=== PATIENT | male | born 1980 | race Caucasian/White ===

== ENCOUNTER → 2016-12-26 | Outpatient (CLI) | payer OTHER ==
[~2016-12-26] MED LIST: ALLDSR/24 PO; FIBER TABLETS; STOOL SOFTNER; TRAZODONE; [UNRECOGNIZED DRUG - OTHER]
[2016-12-26 10:38] LABS: ALT/SGPT 18 U/L (12-78); BLOOD UREA NITROGEN 18 mg/dl (7-18); BUN/CREATININE RATIO 14.9 (10-20); CALCIUM 9.2 mg/dl (8.5-10.1); CARBON DIOXIDE 27 mmol/L (21-32); CHLORIDE 111 mmol/L (98-107); GLUCOSE 92 mg/dl (70-99); POTASSIUM 3.9 mmol/L (3.5-5.1); SODIUM 144 mmol/L (136-145)
[2016-12-26 10:41] LABS: ALB/GLOB RATIO 1.4 (0.9-2); ALKALINE PHOSPHATASE 73 U/L (45-117); AST/SGOT 6 U/L (15-37); CHOLESTEROL 143 mg/dl (0-200); CHOLESTEROL/HDL RATIO 2.9; HDL CHOLESTEROL 50 mg/dl; LDL CHOLESTEROL CALCULATED 80 mg/dl; TRIGLYCERIDES 65 mg/dl (0-150); VERY LOW DENSITY LIPOPROT CALC 13 mg/dl
== END | disposition home or self-care (01) ==
LOC: C.LAB 09:06
PROVIDERS: ATTEND Psychologist Clinical
DX: Z79.899 Other long term (current) drug therapy (principal)

== ENCOUNTER 2017-12-05 02:07 | Emergency (ER) | payer OTHER ==
[~2017-12-05] VITALS: Ht 180.3 cm; Wt 89.7 kg
[2017-12-05 02:08] VITALS: TEMP 37.3; Ht 180.3 cm; Wt 89.7 kg
[2017-12-05] MEDS ORDERED: ONDANSETRON INJ 2 MG/ML 2 ML VIAL IV STA (02:19)
[2017-12-05] MEDS ORDERED: SODIUM CHLORIDE 0.9% 1000ML 1,000 ML IV STA (02:19)
--- NOTE | 2017-12-05 02:27 | EMERGENCY ROOM VISIT NOTE ---
History Report prepared by Kadeem: Anahi Dean Under the Supervision of: Dr. Debi Cueto D.O. First contact with patient: 02:08 Chief Complaint: VOMITING Stated Complaint: VOMITING/ABDOMINAL PAIN Nursing Triage Summary: arrived via amb with bls. pt c/o n/v since 29 with abd pain. History of Present Illness The patient is a 37 year old male who presents to the Emergency Room with complaints of persistent vomiting that started 2 hours ago. The patient rates his pain a 4/10 in severity. He notes he was watching a show until 10pm last night and went to bed afterwards. He states he woke up a couple of hours later and had to vomit. The patient notes he vomited three times at home and once in the ED. The patient denies being around anyone who has recently been sick. He denies any health issues, including diabetes. He has a disability but is unsure what it is. He notes his PCP is Cecily House. The patient reports he has abdominal pain. He notes he had chicken noodle soup and two grilled cheese sandwiches for dinner. The patient denies any diarrhea or urine symptoms. He works at [employer]. Source of History: patient Onset: 2 hours ago Position: other (vomiting) Symptom Intensity: 4/10 Timing: other (persistent) Associated Symptoms: + abdominal pain, No diarrhea, No urinary symptoms Review of Systems See HPI for pertinent positives & negatives. A total of 10 systems reviewed and were otherwise negative. Past Medical & Surgical Patient states no past medical or surgical history. Family History No pertinent family history Social History Smoking Status: Never Smoker Alcohol Use: none Marital Status: single Occupation Status: unemployed Current/Historical Medications Scheduled Cetirizine Hcl (All Day Allergy), 1 TAB PO DAILY Docusate Sodium (Stool Softener), 100 MG PO DAILY Fiber Laxative (Fiber Laxative), 1 TAB PO DAILY Multiple Vitamins W/ Minerals (Centrum), 1 TAB PO DAILY Ranitidine (Zantac), 150 MG PO DAILY Risperidone (Risperidone), 2 MG PO DAILY Trazodone Hcl (Trazodone), 100 MG PO HS Miscellaneous Medications Multiple Vitamins W/ Minerals (Centrum Adults) Allergies Coded Allergies: No Known Allergies (Unverified , 12/05/17) Physical Exam Vital Signs Date Time Temp Pulse Resp B/P (MAP) Pulse Ox O2 Delivery O2 Flow Rate FiO2 12/05/17 06:00 93 12/05/17 05:49 83 18 108/73 97 Room Air 12/05/17 03:58 87 18 110/64 97 Room Air 12/05/17 03:06 81 18 113/72 98 Room Air 12/05/17 02:08 37.3 86 20 154/92 97 Room Air 12/05/17 02:08 89 Physical Exam General: Extraordinary pale and diaphoretic. HEENT: Head - normocephalic and atraumatic Pupils are equal, round, and reactive to light. Extraocular eye muscles are intact, and sclera are anicteric. Nose - moist nasal mucosa without discharge. Mouth - moist buccal mucosa. Oropharynx is nonerythematous and there is no tonsillar exudate or edema noted. Neck: Supple; no JVD, nuchal rigidity, cervical lymphadenopathy. Heart: Tachycardic. There is a normal S1 and S2 with no murmurs, clicks, or gallops appreciated. Lungs: Clear to auscultation bilaterally with no wheezes, rales, or rhonchi. Abdomen: Soft, completely nontender, nondistended, with good bowel sounds. There are no palpable pulsatile masses or hepatosplenomegaly. There is no guarding, rigidity, or rebound noted. Extremities: No evidence of cyanosis, clubbing, or edema. There are easily palpable peripheral pulses. Skin: warm and dry with good turgor and no rashes. Medical Decision & Procedures Laboratory Results 12/05/17 02:20 Red Blood Count 4.34, Mean Corpuscular Volume 89.4, Mean Corpuscular Hemoglobin 31.3, Mean Corpuscular Hemoglobin Concent 35.1, Mean Platelet Volume 9.3, Neutrophils (%) (Auto) 79.7, Lymphocytes (%) (Auto) 14.8, Monocytes (%) (Auto) 4.9, Eosinophils (%) (Auto) 0.5, Basophils (%) (Auto) 0.0, Neutrophils # (Auto) 8.31, Lymphocytes # (Auto) 1.54, Monocytes # (Auto) 0.51, Eosinophils # (Auto) 0.05, Basophils # (Auto) 0.00 12/05/17 02:20 Test 12/05/17 02:20 White Blood Count 10.42 K/uL (4.8-10.8) Red Blood Count 4.34 M/uL (4.7-6.1) Hemoglobin 13.6 g/dL (14.0-18.0) Hematocrit 38.8 % (42-52) Mean Corpuscular Volume 89.4 fL (80-100) Mean Corpuscular Hemoglobin 31.3 pg (25-34) Mean Corpuscular Hemoglobin Concent 35.1 g/dl (32-36) Platelet Count 212 K/uL (130-400) Mean Platelet Volume 9.3 fL (7.4-10.4) Neutrophils (%) (Auto) 79.7 % Lymphocytes (%) (Auto) 14.8 % Monocytes (%) (Auto) 4.9 % Eosinophils (%) (Auto) 0.5 % Basophils (%) (Auto) 0.0 % Neutrophils # (Auto) 8.31 K/uL (1.4-6.5) Lymphocytes # (Auto) 1.54 K/uL (1.2-3.4) Monocytes # (Auto) 0.51 K/uL (0.11-0.59) Eosinophils # (Auto) 0.05 K/uL (0-0.5) Basophils # (Auto) 0.00 K/uL (0-0.2) RDW Standard Deviation 41.8 fL (36.4-46.3) RDW Coefficient of Variation 12.8 % (11.5-14.5) Immature Granulocyte % (Auto) 0.1 % Immature Granulocyte # (Auto) 0.01 K/uL (0.00-0.02) Anion Gap 8.0 mmol/L (3-11) Est Creatinine Clear Calc Drug Dose 81.4 ml/min Estimated GFR () 79.5 Estimated GFR (Non- 68.6 BUN/Creatinine Ratio 19.0 (10-20) Calcium Level 9.0 mg/dl (8.5-10.1) Total Bilirubin 0.9 mg/dl (0.2-1) Aspartate Amino Transf (AST/SGOT) 18 U/L (15-37) Alanine Aminotransferase (ALT/SGPT) 22 U/L (12-78) Alkaline Phosphatase 76 U/L (45-117) Total Protein 7.5 gm/dl (6.4-8.2) Albumin 3.9 gm/dl (3.4-5.0) Globulin 3.6 gm/dl (2.5-4.0) Albumin/Globulin Ratio 1.1 (0.9-2) Laboratory results per my review. Medications Administered Medications (Trade) Dose Ordered Sig/Timi Route Start Time Stop Time Status Last Admin Dose Admin Sodium Chloride 1,000 ml @ 999 mls/hr Q1H1M STAT IV 12/05/17 02:19 12/05/17 03:19 DC 12/05/17 02:24 999 MLS/HR Ondansetron HCl (Zofran Inj) 4 mg NOW STAT IV 12/05/17 02:19 12/05/17 02:21 DC 12/05/17 02:23 4 MG Procedure 0219: Zofran Inj 4 mg IV, Sodium Chloride 1000 ml @ 999 mls/hr IV. ED Course 0208: The patient was evaluated in room A11B. A complete history and physical examination were performed. Nursing notes and previous electronic medical records were reviewed. IV lock was established and labs were drawn as above. 0219: Zofran Inj 4 mg IV, Sodium Chloride 1000 ml @ 999 mls/hr IV. 0315: I discussed results with the patient and he is feeling better. He is going to try to rest and drink Gatorade. 0422: I rechecked the patient and he is going to try crackers with Gatorade. 0515: I went to recheck the patient and he was sleeping. I will continue to let him rest. 0610: The patient is awake and feeling better. He will be discharged home. Medical Decision The patient is a 37 year old male who presents to the ED with vomiting. Differential diagnosis includes food born illness, gastritis, viral illness. Las results show: Normal LFT's Glucose 130 BUN 25 Creatinine 1.3 No leukocytosis Hemoglobin 13.6 This is a 37-year-old male patient who developed sudden onset of vomiting. He then began to have some dry heaving. He denies any recent sick contacts or eating anything out of the ordinary. The patient received IV fluids and Zofran here in the emergency department and is feeling much better. He was able to sleep for a period of time. He was able to eat and drink prior to discharge from the emergency department. I have asked the patient to follow-up with his PCP if he has any persistent symptoms. If symptoms worsen, he should return to the ER. Medication Reconcilliation Current Medication List: was personally reviewed by me Blood Pressure Screening Patient's blood pressure: Normal blood pressure Impression Primary Impression: Vomiting Scribe Attestation The scribe's documentation has been prepared under my direction and personally reviewed by me in its entirety. I confirm that the note above accurately reflects all work, treatment, procedures, and medical decision making performed by me. Departure Information Dispostion Home / Self-Care Referrals Zana House M.D. (MEDICAL) (PCP) Patient Instructions My [facility] Additional Instructions Rest. Take a bland diet and plenty of clear liquids. Follow up with PCP if nausea or vomiting continues
[2017-12-05 02:37] LABS: EOS % 0.5 %; EOS ABS # 0.05 K/uL (0-0.5); HEMATOCRIT 38.8 % (42-52); HEMOGLOBIN 13.6 g/dL (14.0-18.0); IG# 0.01 K/uL (0.00-0.02); LYMPH % 14.8 %; LYMPH ABS # 1.54 K/uL (1.2-3.4); MEAN CELL VOLUME 89.4 fL (80-100); MEAN CORPUSCULAR HEMOGLOBIN 31.3 pg (25-34); MEAN CORPUSCULAR HGB CONC 35.1 g/dl (32-36); MEAN PLATELET VOLUME 9.3 fL (7.4-10.4); MONO % 4.9 %; MONO ABS # 0.51 K/uL (0.11-0.59); NEUT % 79.7 %; NEUT ABS # 8.31 K/uL (1.4-6.5); PLATELET COUNT 212 K/uL (130-400); RED CELL DISTRIBUTION WIDTH CV 12.8 % (11.5-14.5); RED CELL DISTRIBUTION WIDTH SD 41.8 fL (36.4-46.3); WHITE BLOOD COUNT 10.42 K/uL (4.8-10.8)
[2017-12-05 02:57] LABS: ALBUMIN 3.9 gm/dl (3.4-5.0); CREATININE 1.31 mg/dl (0.60-1.40); POTASSIUM 3.5 mmol/L (3.5-5.1)
[2017-12-05 02:59] LABS: TOTAL PROTEIN 7.5 gm/dl (6.4-8.2)
[2017-12-05] MEDS ORDERED: RSP2 PO (03:33)
[2017-12-05] MEDS ORDERED: DOCU100C PO (04:07)
[2017-12-05] MEDS ORDERED: TRAZ100T29 PO (04:07)
[2017-12-05] MEDS ORDERED: FIBER PO (04:07)
[2017-12-05] MEDS ORDERED: CETI10TA73 PO (04:07)
[2017-12-05] MEDS ORDERED: RANI150T85 PO (04:07)
[2017-12-05] MEDS ORDERED: MULTTAB5 PO (04:08)
[2017-12-05] MEDS ORDERED: MULT-610 (04:08)
[2017-12-05 05:49] VITALS: BP 108/73; O2SAT 97
[2017-12-05 06:00] VITALS: PULSE 93
== END 2017-12-05 06:32 | disposition home or self-care (01) ==
LOC: EDBD 02:07 → C.EDA 02:08
DX: R11.10 Vomiting, unspecified (principal)

== ENCOUNTER 2023-09-30 23:06 | Observation (INO) ==
--- OUTSIDE RECORDS SUMMARY | 2023-09-30 23:11 | External Medical Summary ---
Author Name Unknown Address Unknown Organization K01:LAB[facility]ATORY [facility] - [address] [facility] [place] [address] Laboratory Report Ordering Provider Test Date Status CHLOÉ CORRIGAN 09/26/2023 15:14:45 Final Observation Date Value Abnormality Reference (Units ) Status HbA1C 09/26/2023 15:14:45 5.4 4.0-5.6 (% ) Final The use of HbA1c to monitor glycemic status is based on normal hemoglobin and HbA composition. This test should not be used in patients with abnormal hemoglobin that affects the half life of the red blood cell or the in vivo glycation rates. Glucose, estimated average 09/26/2023 15:14:45 108 <126 (mg/dL) Final Performing Location LAB[facility]ATORY [facility] - [address] [facility] [place] [id number]
--- OUTSIDE RECORDS SUMMARY | 2023-09-30 23:11 | External Medical Summary ---
Author Name Unknown Address Unknown Organization K01:[facility] - [address] [facility] [place] [address] Laboratory Report Ordering Provider Test Date Status CHLOÉ CORRIGAN 09/26/2023 15:14:45 Final Observation Date Value Abnormality Reference (Units ) Status BUN 09/26/2023 15:14:45 22 Above high normal 6-20 (mg/dL) Final Creatinine 09/26/2023 15:14:45 1.2 0.6-1.2 (mg/dL) Final Glomerular filtration rate/1.73 sq M.predicted [Volume Rate/Area] in Serum, Plasma or Blood by Creatinine-based formula (CKD-EPI) 09/26/2023 15:14:45 74 >=60 (mL/min) Final eGFR is calculated based on the CKD-EPI 2020 equation SODIUM 09/26/2023 15:14:45 140 135-146 (m mol/L) Final Potassium 09/26/2023 15:14:45 4.3 3.5-5.1 (m mol/L) Final Cl 09/26/2023 15:14:45 103 98-107 (mm ol/L) Final CO2 09/26/2023 15:14:45 26 22-32 (mmo l/L) Final Anion gap 09/26/2023 15:14:45 11 7-15 (mmol /L) Final Glucose 09/26/2023 15:14:45 90 70-120 (mg /dL) Final Albumin 09/26/2023 15:14:45 4.6 3.8-5.0 (g /dL) Final AST (Aspartate aminotransferase) 09/26/2023 15:14:45 15 10-50 (U/L) Final Alk Phos 09/26/2023 15:14:45 74 35-130 (U/ L) Final Bilirubin, Total 09/26/2023 15:14:45 0.9 <=1 .2 (mg/dL) Final Calcium 09/26/2023 15:14:45 9.7 8.4-10.2 ( mg/dL) Final Protein 09/26/2023 15:14:45 6.6 6.0-8.3 (g /dL) Final ALT (Alanine aminotransferase) 09/26/2023 15:14:45 16 10-50 (U/L) Final Performing [place] [facility] [place] [address] [facility] [address]
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
--- OUTSIDE RECORDS SUMMARY | 2023-09-30 23:11 | External Medical Summary | Summary of Care ---
Author Name Unknown Organization [facility] Address [address] [place] [address] Phone [phone] Care Team Providers Care Machine Lead Burner Name Role Phone Kevin Vora MD Primary Care Provider [phone] Encounter Details Date Type Department Care Team (Late st Contact Info) Description 09/26/2023 Orders Only [facility], [place] [address] [place] [address] Katina Nava CRNP [address] [place] [address] Encounter for long-term (current) use of other medications* Allergies No known active allergiesdocumented as of [...] ective psychosis (HCC) 1 TABLET daily- Dr Nava 0 08/07/2017 Active Simethicone 80 MG Oral [...] of other medications 09/26/2023 3:14 PM EST Scheduled Orders Name Type Priority Associated Diagnoses Orde r Schedule CBC WITH WBC DIFFERENTIAL Lab Routine Encounter for long-term (current) use of other medications Expected: 09/26/2023, Expires: 09/26/2024 LIPID PANEL WITH DIRECT LDL IF TG IS HIGH Lab Routine Encounter for long-term (current) use of other medications Expected: 09/26/2023, Expires: 09/26/2024 COMPREHENSIVE METABOLIC PANEL Lab Routine Encounter for long-term (current) use of other medications Expected: 09/26/2023, Expires: 09/26/2024 HEMOGLOBIN A1C Lab Routine Encounter for long-term (current) use of other medications Expected: 09/26/2023, Expires: 09/26/2024 Health Maintenance Due Date Last Done Comments [...] Encounter for long-term (current) use of other medications- Primary documented in this encounter Care Teams Machine Lead Burner Relationship Specialty Start Date End Date Kevin Vora MD [address] [place] [address] PCP - General Family Medicine 01/22/18 documented as of this encounter
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
--- OUTSIDE RECORDS SUMMARY | 2023-09-30 23:11 | External Medical Summary ---
Author Name Unknown Address Unknown Organization [id number]:[facility] [address] [facility] [place] [address] Laboratory Report Ordering Provider Test Date Status CHLOÉ CORRIGAN 09/26/2023 15:14:45 Final Observation Date Value Abnormality Reference (Units ) Status SYNC LEUKOCYTES IN BLOOD BY AUTOMATED COUNT 09/26/2023 15:14:45 4.29 4.00-10.80 (K/uL) Final Segs 09/26/2023 15:14:45 56.3 40.0-75.0 (%) Final Lymphs % 09/26/2023 15:14:45 36.8 18.0-42.0 (%) Final Monos 09/26/2023 15:14:45 6.5 1.0-11.0 (%) Final Eosinophils 09/26/2023 15:14:45 0.2 0.0-6.0 (%) Final Basos 09/26/2023 15:14:45 0.0 0.0-2.0 (%) Final Immature Granulocyte, Percent 09/26/2023 15:14:45 0.2 0.0-2.0 (%) Final Absolute Segs 09/26/2023 15:14:45 2.41 1.80-7.70 (K/uL) Final Lymphs, absolute 09/26/2023 15:14:45 1.58 1.00-4.80 (K/ul) Final Monos, Abs 09/26/2023 15:14:45 0.28 0.00-1.10 (K/uL) Final Eos, Abs 09/26/2023 15:14:45 0.01 0.00-0.70 (K/uL) Final Basos, Abs 09/26/2023 15:14:45 0.00 0.00-0.20 (K/uL) Final Immature Granulocytes, Number 09/26/2023 15:14:45 0.01 0.00-0.20 (K/uL) Final Performing Location [facility] - [address] [facility] [id number]
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
--- OUTSIDE RECORDS SUMMARY | 2023-09-30 23:11 | External Medical Summary ---
Author Name Unknown Address Unknown Organization K01:[facility] [place] - [address] [place] [address] Laboratory Report Ordering Provider Test Date Status CHLOÉ CORRIGAN 09/26/2023 15:14:45 Final Observation Date Value Abnormality Reference (Units ) Status WBC, Total 09/26/2023 15:14:45 4.29 4.00-10.80 (K/uL) Final RBC 09/26/2023 15:14:45 4.34 4.50-5.25 (M/uL) Final Hemoglobin 09/26/2023 15:14:45 13.7 Below low normal 14.0-16.8 (g/dL) Final HCT 09/26/2023 15:14:45 40.9 40.0-48.4 (%) Final MCV 09/26/2023 15:14:45 94.2 82.0-99.5 (fL) Final MCH 09/26/2023 15:14:45 31.6 27.0-34.0 (pg) Final MCHC 09/26/2023 15:14:45 33.5 32.0-36.0 (g/dL) Final RDW 09/26/2023 15:14:45 12.1 11.5-15.5 (%) Final Platelets 09/26/2023 15:14:45 204 140-400 (K/uL) Final MPV 09/26/2023 15:14:45 9.4 6.6-11.1 (fL) Final Nucleated erythrocytes/100 leukocytes [Ratio] in Blood by Automated count 09/26/2023 15:14:45 0 <=0 (/100 WBCs) Final Performing Location [facility] - [address] [place] [address]
--- OUTSIDE RECORDS SUMMARY | 2023-09-30 23:11 | External Medical Summary ---
Author Name Unknown Address Unknown Organization K01:[facility] [address] [facility] [place] [address] Laboratory Report Ordering Provider Test Date Status CHLOÉ CORRIGAN 09/26/2023 15:14:45 Final Observation Date Value Abnormality Reference (Units ) Status Triglyceride 09/26/2023 15:14:45 96 <=174 ( mg/dL) Final Triglyceride Reference Range s (mg/dL):
<150 Acceptable
150-174 Borderline high
175-499 High
>=500 Very high Cholesterol 09/26/2023 15:14:45 168 <200 (mg /dL) Final Total Cholesterol Reference Ranges (mg/dL):
<200 Desirable
200-239 Borderline high
>=240 High HDL 09/26/2023 15:14:45 47 >39 (mg/dL ) Final HDL Cholesterol Reference Ra nges (mg/dL):
>=60 High (Desirable)
<50 Low (Undesirable) For Females
<40 Low (Undesirable) For Males NON-HDL CHOLESTEROL 09/26/2023 15:14:45 121 <=159 (mg/dL) Final Non-HDL Cholesterol Referenc e Range (mg/dL):
<100 Target level for high risk ASCVD patient
<130 Optimal for general population
130-159 Near optimal for general population
160-189 Borderline High
190-219 High
>=220 Very High LDL, (calculated) 09/26/2023 15:14:45 102 <= 129 (mg/dL) Final LDL Cholesterol Reference Ra nges (mg/dL):
<70 Target level for high risk ASCVD patient
<100 Optimal for general population
100-129 Near optimal for general population
130-159 Borderline high
160-189 High
>=190 Very high Performing Location [facility] - [address] [facility] [address]
[2023-09-30] MEDS: FAMOTIDINE 20MG IV PUSH 20 MG/5 ML SYR IV STA (23:27)
[2023-09-30] MEDS: ALUMINUM/MAGNESIUM SUSP 30 ML UDC PO STA (23:27)
[2023-09-30 23:28] LABS: Appearance Urine Clear (Clear); Bilirubin Urine Negative (Negative); Blood Urine Negative (Negative); Color Urine Yellow; Glucose Urine UA Negative (Negative); Ketones Urine Negative (Negative); Leukocyte Esterase Urine Negative (Negative); Nitrite Urine Negative (Negative); Protein Urine Negative (Negative); Specific Gravity Urine 1.018 (1.000-1.030); Urobilinogen Urine Negative (Negative); pH Urine 7.5 (4.5-7.5)
[2023-09-30 23:30] LABS: Eosinophils # (auto) 0.01 K/uL (0.00-0.50); Eosinophils % (auto) 0.2 %; Hematocrit (blood only) 39.9 % (42.0-52.0); Hemoglobin 13.7 g/dl (14.0-18.0); Immature Granulocytes # (auto) 0.01 K/uL (0.01-0.20); Immature Granulocytes % (auto) 0.2 %; Lymphocytes # (auto) 2.25 K/uL (1.20-3.40); Lymphocytes % (auto) 39.1 %; Mean Corpuscular Hemoglobin 30.9 pg (25.0-34.0); Mean Corpuscular Hgb Conc 34.3 g/dL (32.0-36.0); Mean Corpuscular Volume 90.1 fL (80.0-100.0); Mean Platelet Volume 9.4 fL (9.4-12.4); Monocytes # (auto) 0.35 K/uL (0.11-0.59); Monocytes % (auto) 6.1 %; Neutrophils # (auto) 3.14 K/uL (1.40-6.50); Neutrophils % (auto) 54.4 %; Platelet Count 196 K/uL (130-400); RDW Coefficient of Variation 12.2 % (11.5-14.5); RDW Standard Deviation 40.2 fL (36.4-46.3); Red Blood Count 4.43 M/uL (4.70-6.10); White Blood Count 5.76 K/ul (4.8-10.8)
[2023-09-30 23:49] LABS: Albumin Globulin Ratio 2.1 (0.9-2); BUN Creatinine Ratio 19.1 (10-20); Bilirubin,Total 0.7 mg/dl (0.2-1.0); Calcium 9.7 mg/dl (8.6-10.3); Creatinine Clr Calc Pharmacy 76.6 ml/min; Est GFR (African American) 76.2 ml/min; Est GFR (Non-African American) 65.8 ml/min; Globulin 2.4 gm/dl (2.5-4.0); Potassium 3.8 mmol/L (3.5-5.1); Total Protein 7.4 gm/dl (6.0-8.3)
[2023-09-30 23:55] LABS: Troponin I High Sensitivity 3.6 pg/ml (0-20)
[2023-10-01] MEDS: PANTOprazole 40 MG in SYRINGE 0 ML IV ONE (00:13)
[2023-10-01] MEDS: ONDANSETRON INJ 2 MG/ML 2 ML VIAL IV STA (00:13)
--- NOTE | 2023-10-01 00:32 | Emergency Department Note ---
Impression & Plan Abdominal pain, acute, right upper quadrant, Cholelithiases, Intractable abdominal pain ED Provider Note HISTORY OF PRESENT ILLNESS: Patient is a 43-year-old male presenting with epigastric and mid central abdominal pain. Patient reports the pain started acutely at 2200 tonight. He states that it felt like "someone was punching me in the abdomen" so he called 911. He reports an episode of vomiting at home and then also in the waiting room. He states the pain started after eating barbecue wings earlier tonight. He denies any fevers. Denies any history of abdominal surgeries. Denies any chest pain or shortness of breath. On my assessment in the ER, he is still complaining of significant pain in his abdomen. Locates the pain in the right upper quadrant epigastric region. Reports he still feels nauseous. ROS: as above PHYSICAL EXAM: Constitutional: Patient appears in no acute distress. HENT: Head: Normocephalic and atraumatic. Eyes: EOMI, PERRL Mouth/Throat: Mucous membranes moist. Neck: Trachea midline. Neck supple. Cardiovascular: RRR, No murmurs, rubs or gallops. Intact distal pulses. Pulmonary/Chest: No respiratory distress. Breath sounds clear and equal bilaterally. No wheezes or rales. Abdominal: Abdomen soft, no rebound or guarding. RUQ TTP Musculoskeletal: No edema, tenderness or deformity noted. Skin: Warm and dry. No rash, erythema, pallor or cyanosis Psychiatric: Appropriate mood and affect for situation. Neurological: Alert and keenly responsive. CN II-XII grossly intact, moving all extremities equally and fully. MDM: - Vitals signs showed hypertension and tachycardia. - History obtained via patient. Patient presents with epigastric and mid central abdominal pain. Patient reports symptoms started acutely at 2200 tonight. He states he feels like someone is punching him in the stomach. He denies any history of abdominal surgeries. He had multiple episodes of vomiting and route to the hospital and in the waiting room. Denies any fevers. He denies any chest pain. Reports significant pain and feeling nauseous at this time. - Chronic conditions affecting care: None - Differential diagnoses include, but are not limited to: Biliary colic; cholangitis; cholecystitis; hepatitis; right lower lobe pneumonia; pulmonary embolism; pyelonephritis; herpes zoster; perforated duodenal ulcer - Order placed for continuous cardiac monitoring. At this time, monitor showed rate of 65 bpm with normal sinus rhythm, per my interpretation. - External medical records reviewed. EMS run sheet was reviewed. Patient physically stable and route. - EKG interpreted by myself showed normal sinus rhythm. Rate 61 bpm. QT 412. No acute ischemic changes. Noted to have a right bundle branch block. - Laboratory workup interpreted by myself showed normal WBC; stable electrolytes; normal troponin; normal lipase - CT abdomen/pelvis with IV contrast 1.2 cm calcified gallstone within the gallbladder with some slightly increased gallbladder mason. No ductal dilatation. No evidence of bowel obstruction. Recommends right upper quadrant ultrasound. - Patient given 20 mg IV pepcid, maalox, and 4 mg IV zofran in ER. Given 40 mg IV protonix and 1L NS. On reassessment, patient still complaining of pain and nausea. 50 mcg IV fentanyl and 5 mg IV compazine ordered. - Repeat EKG is stable. Repeat troponin normal - On reassessment, patient is still complaining of abdominal pain. He does not feel comfortable with plan for discharge home given his continued symptoms. Right upper quadrant ultrasound was ordered given patient's CT scan results. - Patient has a normal white blood cell count, no fever and no acute evidence of acute cholecystitis. IV antibiotics were not initiated at this time. His symptoms are likely secondary to biliary colic from the large stone. - Discussion was had with career development counselor about patient's case and need for admission - Hospitalist consulted for admission - Patient admitted to [facility] for further evaluation and management. ASSESSMENT AND PLAN: Diagnosis: Right upper quadrant abdominal pain; intractable abdominal pain; cholelithiasis Plan: Admit Past Med/Surg History Medical History (Updated 10/01/23 @ 01:53 by Katt Orellana MD) GERD (gastroesophageal reflux disease) Social History Smoking Status: Never smoker Preferred Language: Guyanese Feels Safe at Home: Yes Allergies Allergies Allergy/AdvReac Type Severity Reaction Status Date / Time No Known Allergies Allergy Unverified 10/01/23 00:33 Home Meds Home Medications Medication Instructions Recorded Confirmed ascorbic acid (vitamin C) 500 mg 500 mg PO QAM 10/01/23 10/01/23 tablet (Vitamin C) docusate sodium 100 mg capsule 100 mg PO QAM 10/01/23 10/01/23 (Stool Softener) fexofenadine 180 mg tablet 180 mg PO QAM 10/01/23 10/01/23 multivitamin 1 tab PO QAM 10/01/23 10/01/23 psyllium husk 0.52 gram capsule 0.52 g PO QAM 10/01/23 10/01/23 (Daily Fiber) risperidone 2 mg tablet 2 mg PO QAM 10/01/23 10/01/23 trazodone 100 mg tablet 100 mg PO UD PRN Sleep 10/01/23 10/01/23 Results & Data (ED) Vital Signs Vital Signs - 24 hr 09/30/23 23:09 10/01/23 01:22 10/01/23 01:25 Temperature 36.8 C Temperature Source Temporal Artery Scan Pulse Rate 97 H 66 Pulse Rate [Right Finger] 69 Respiratory Rate 18 18 Respiratory Effort / Characteristics Non-Labored Spontaneous Non-Labored Spontaneous Respiratory Depth Normal Normal Respiratory Pattern Regular Regular Blood Pressure 165/91 H Blood Pressure [Right Arm] 135/82 Blood Pressure Mean 115 Blood Pressure Mean [Right Arm] 99 Blood Pressure Position Sitting Blood Pressure Position [Right Arm] Sitting Pulse Oximetry 99 99 Oxygen Delivery Method Room Air Room Air Sepsis Recent Fever Within 48 Hours No Sepsis New/Unexplained Change in Mental Status N/A Sepsis Action Taken by Nursing No Action Required Laboratory Data 09/30/23 23:14 09/30/23 23:14 Lab Results 09/30/23 09/30/23 10/01/23 Range/Units 23:14 23:20 01:08 WBC 5.76 (4.8-10.8) K/ul RBC 4.43 L (4.70-6.10) M/uL Hgb 13.7 L (14.0-18.0) g/dl Hct 39.9 L (42.0-52.0) % MCV 90.1 (80.0-100.0) fL MCH 30.9 (25.0-34.0) pg MCHC 34.3 (32.0-36.0) g/dL RDW Std Deviation 40.2 (36.4-46.3) fL RDW Coeff of Kristyn 12.2 (11.5-14.5) % Plt Count 196 (130-400) K/uL MPV 9.4 (9.4-12.4) fL Immature Gran % (Auto) 0.2 % Neut % (Auto) 54.4 % Lymph % (Auto) 39.1 % [place] % (Auto) 6.1 % Eos % (Auto) 0.2 % Baso % (Auto) 0.0 % Neut # (Auto) 3.14 (1.40-6.50) K/uL Lymph # (Auto) 2.25 (1.20-3.40) K/uL [place] # (Auto) 0.35 (0.11-0.59) K/uL Eos # (Auto) 0.01 (0.00-0.50) K/uL Baso # (Auto) 0.00 (0.00-0.20) K/uL Immature Gran # (Auto) 0.01 (0.01-0.20) K/uL Sodium 140 (136-145) mmol/L Potassium 3.8 (3.5-5.1) mmol/L Chloride 106 (98-107) mmol/L Carbon Dioxide 25 (21-32) mmol/L Anion Gap 9 (3-11) BUN 25 H (6-23) mg/dl Creatinine 1.31 (0.6-1.4) mg/dl Est Cr Clr Drug Dosing 76.6 ml/min Est GFR ( Amer) 76.2 ml/min Est GFR (Non-Af Amer) 65.8 ml/min BUN/Creatinine Ratio 19.1 (10-20) Glucose 115 H (70-99(Fasting)) mg/dl Calcium 9.7 (8.6-10.3) mg/dl Total Bilirubin 0.7 (0.2-1.0) mg/dl AST 16 (13-39) U/L ALT 13 (7-52) U/L Alkaline Phosphatase 76 (34-104) U/L Troponin I High Sens 3.6 3.2 (0-20) pg/ml Total Protein 7.4 (6.0-8.3) gm/dl Albumin 5.0 (3.4-5.0) gm/dl Globulin 2.4 L (2.5-4.0) gm/dl Albumin/Globulin Ratio 2.1 H (0.9-2) Lipase 30 (11-82) U/L Urine Color Yellow Urine Appearance Clear (Clear) Urine pH 7.5 (4.5-7.5) Ur Specific [place] 1.018 (1.000-1.030) Urine Protein Negative (Negative) Urine Glucose (UA) Negative (Negative) Urine Ketones Negative (Negative) Urine Blood Negative (Negative) Urine Nitrite Negative (Negative) Urine Bilirubin Negative (Negative) Urine Urobilinogen Negative (Negative) Ur Leukocyte Esterase Negative (Negative) Administered Medications Discontinued Medications Al Hydrox/Mg Hydrox/Simethicone (Aluminum/Magnesium Susp 30 Ml Udc) 30 ml PO NOW STA Stop: 09/30/23 23:15 Last Admin: 09/30/23 23:27 Dose: 30 ml Documented By: JERRY Fentanyl Citrate (Fentanyl Citrate Pf 100 Mcg/2 Ml Vial) 50 mcg IV NOW STA Stop: 10/01/23 01:10 Last Admin: 10/01/23 01:31 Dose: 50 mcg Documented By: Famotidine (Pepcid 20mg Iv Push) 20 mg in 5 mls @ 2.5 mls/min IV NOW STA Stop: 09/30/23 23:15 Last Admin: 09/30/23 23:27 Dose: 2.5 mls/min Documented By: JERRY Sodium Chloride (Nss) 1,000 mls @ 999 mls/hr IV .Q1H1M ONE Stop: 10/01/23 00:44 Last Infusion: 10/01/23 01:32 Dose: Infused Documented By: Admin: 10/01/23 00:51 Dose: 999 mls/hr Documented By: Pantoprazole Sodium 40 mg/ (Syringe) 10 mls @ 5 mls/min IV NOW ONE Stop: 09/30/23 23:45 Last Admin: 10/01/23 00:13 Dose: 5 mls/min Documented By: Prochlorperazine (Compazine) 1 mls @ 1 mls/min IV ONE ONE Stop: 10/01/23 01:10 Last Admin: 10/01/23 01:31 Dose: 1 mls/min Documented By: Ioversol (Optiray 320 500ml) 100 ml IV ONCE ONE Stop: 10/01/23 00:42 Last Admin: 10/01/23 00:41 Dose: 85 ml Documented By: DB Ondansetron HCl (Ondansetron Inj 2 Mg/Ml 2 Ml Vial) 4 mg IV NOW STA Stop: 09/30/23 23:45 Last Admin: 10/01/23 00:13 Dose: 4 mg Documented By: Imaging Data Radiologist's Impression: Abdomen/Pelvis CT 09/30/23 23:44 Exam(s): CT ABDOMEN + PELVIS With Contrast IV Amt: 85 ml optiray 320 EXAM: CT Abdomen and Pelvis With Intravenous Contrast CLINICAL HISTORY: Reason for exam: epigastric pain. TECHNIQUE: Axial computed tomography images of the abdomen and pelvis with intravenous contrast. Automated exposure control was utilized for the study. A dose lowering technique was utilized adhering to the principles of ALARA. CONTRAST: Patient received 85 ml optiray 320 of IV contrast COMPARISON: 01/15/2022. FINDINGS: Lung bases: Unremarkable. No mass. No consolidation. ABDOMEN: Liver: Scattered punctate calcifications. No mass. Gallbladder and bile ducts: Demonstrate a 1.2 cm calcified gallstones within the gallbladder. Slightly interesting gallbladder mason. Gallbladder otherwise unremarkable. No ductal dilation. Pancreas: Unremarkable. No mass. No ductal dilation. Spleen: Scattered punctate calcifications. No splenomegaly. Adrenals: Unremarkable. No mass. Kidneys and ureters: Unremarkable. No solid mass. No hydronephrosis. Stomach and bowel: No obstruction or ileus. Moderate stool throughout the colon. No evidence for diverticulitis. PELVIS: Appendix: No findings to suggest acute appendicitis. Bladder: Partially contracted with nonspecific wall thickening. No mass. Reproductive: Unremarkable prostate gland. ABDOMEN and PELVIS: Intraperitoneal space: No free air. No free fluid. Bones/joints: No acute fracture. Soft tissues: Unremarkable. Vasculature: Unremarkable. No abdominal aortic aneurysm. Lymph nodes: Unremarkable. No enlarged lymph nodes. IMPRESSION: No evidence for bowel obstruction or ileus. Abundant stool within the colon. Cholelithiasis. Slightly interesting gallbladder wall suggesting thickening/inflammation. No gross biliary ductal dilatation. Correlation with right upper quadrant ultrasound is recommended. Otherwise no change. Electronically signed by: Brandon Jaramillo M.D. 10/01/23 01:38 AM Discharge Plan Visit Data Chief Complaint: Abdominal Pain Stated Complaint: Abdominal Pain, Nausea ED Provider: Katt Orellana Discharge Problem: Abdominal pain, acute, right upper quadrant, Cholelithiases, Intractable abdominal pain Forms Stand Alone Forms: [facility] Prescriptions Prescriptions: No Action risperidone 2 mg tablet 2 mg PO QAM multivitamin Tablet 1 tab PO QAM fexofenadine [Eduarda] 180 mg Tablet 180 mg PO QAM ascorbic acid (vitamin C) [Vitamin C] 500 mg Tablet 500 mg PO QAM docusate sodium [Stool Softener] 100 mg Capsule 100 mg PO QAM psyllium husk [Daily Fiber] 0.52 gram Capsule 0.52 g PO QAM trazodone 100 mg tablet 100 mg PO UD PRN (Reason: Sleep) Referrals Referrals: Kevin Vora MD [Primary Care Provider] -
[2023-10-01] MEDS: OPTIRAY 320 500ml IV ONE (00:41)
[2023-10-01] MEDS: SODIUM CHLORIDE 0.9% 1,000 ML IV ONE (00:51)
[2023-10-01] MEDS: PROCHLORPERAZINE 1 ML IV ONE (01:31)
[2023-10-01] MEDS: fentaNYL citrate PF 100 MCG/2 ML VIAL IV STA (01:31)
--- NOTE | 2023-10-01 01:38 | CT Scan Report ---
Exam(s): CT ABDOMEN + PELVIS With Contrast IV Amt: 85 ml optiray 320 EXAM: CT Abdomen and Pelvis With Intravenous Contrast CLINICAL HISTORY: Reason for exam: epigastric pain. TECHNIQUE: Axial computed tomography images of the abdomen and pelvis with intravenous contrast. Automated exposure control was utilized for the study. A dose lowering technique was utilized adhering to the principles of ALARA. CONTRAST: Patient received 85 ml optiray 320 of IV contrast COMPARISON: 01/15/2022. FINDINGS: Lung bases: Unremarkable. No mass. No consolidation. ABDOMEN: Liver: Scattered punctate calcifications. No mass. Gallbladder and bile ducts: Demonstrate a 1.2 cm calcified gallstones within the gallbladder. Slightly interesting gallbladder mason. Gallbladder otherwise unremarkable. No ductal dilation. Pancreas: Unremarkable. No mass. No ductal dilation. Spleen: Scattered punctate calcifications. No splenomegaly. Adrenals: Unremarkable. No mass. Kidneys and ureters: Unremarkable. No solid mass. No hydronephrosis. Stomach and bowel: No obstruction or ileus. Moderate stool throughout the colon. No evidence for diverticulitis. PELVIS: Appendix: No findings to suggest acute appendicitis. Bladder: Partially contracted with nonspecific wall thickening. No mass. Reproductive: Unremarkable prostate gland. ABDOMEN and PELVIS: Intraperitoneal space: No free air. No free fluid. Bones/joints: No acute fracture. Soft tissues: Unremarkable. Vasculature: Unremarkable. No abdominal aortic aneurysm. Lymph nodes: Unremarkable. No enlarged lymph nodes. IMPRESSION: No evidence for bowel obstruction or ileus. Abundant stool within the colon. Cholelithiasis. Slightly interesting gallbladder wall suggesting thickening/inflammation. No gross biliary ductal dilatation. Correlation with right upper quadrant ultrasound is recommended. Otherwise no change. Electronically signed by: Brandon Jaramillo M.D. 10/01/23 01:38 AM
[2023-10-01] MEDS ORDERED: PROMETHAZINE HCL 12.5 MG in SODIUM CHLORIDE 0.9% 50 ML IV PRN (02:02)
[2023-10-01] MEDS ORDERED: oxyCODONE HCL IR 5 MG TAB (IMMEDIATE RELEASE) PO PRN (02:02)
--- NOTE | 2023-10-01 02:25 | History & Physical Report ---
Date of Service October 01, 2023 Assessment & Plan (1) Abdominal pain: Plan: Possible cholecystitis No sepsis for now Hyperlipidemia not on statin Rx mood disorder, stable OBS GMF Analgesia General Surgery consult Re: Biliary colic possible cholecystitis N.p.o. until patient seen by General Surgery DVT prophylaxis. SCDs Re: Possible procedure Full code Text document was generated using [employer] voice recognition software. It may contain grammatical or spelling errors. Kindly contact undersigned for clarification of any documentation item in question. History of Present Illness Chief Complaint: Abdominal pain Primary Care Provider: Kevin Vora MD History obtained from patient and records. Medical history significant for cholelithiasis, hyperlipidemia, mood disorder, mild intellectual disability. Last ER visit 2 years ago for abdominal pain, nausea vomiting symptoms attributed to gastroenteritis. Incidental finding of cholelithiasis on abdominal imaging. Last night, patient noted achy epigastric discomfort after consuming spicy wings. Some nausea with bilious emesis. No diarrhea symptoms. No chest pain, no SOB. No fever, no chills. 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 Allergies Allergy/AdvReac Type Severity Reaction Status Date / Time No Known Allergies Allergy Unverified 10/01/23 00:33 Home Medications Medication Instructions Recorded Confirmed Type ascorbic acid (vitamin C) 500 mg 500 mg PO QAM 10/01/23 10/01/23 History tablet (Vitamin C) docusate sodium 100 mg capsule 100 mg PO QAM 10/01/23 10/01/23 History (Stool Softener) fexofenadine 180 mg tablet 180 mg PO QAM 10/01/23 10/01/23 History multivitamin 1 tab PO QAM 10/01/23 10/01/23 History psyllium husk 0.52 gram capsule 0.52 g PO QAM 10/01/23 10/01/23 History (Daily Fiber) risperidone 2 mg tablet 2 mg PO QAM 10/01/23 10/01/23 History trazodone 100 mg tablet 100 mg PO UD PRN Sleep 10/01/23 10/01/23 History Past Med/Surg History Medical History GERD (gastroesophageal reflux disease) Social History Smoking Status: Never smoker Hx Alcohol Use: Yes Hx Substance Use: No Preferred Language: Spanish Communication Ability: Effective Eyelet Row Marker Required: No Beliefs That Will Affect Care: None Current Living Situation: Alone Other Information That Helps Us Care for You: No Feels Safe at Home: Yes Safety Concerns: Feels Safe At This Time Assistive Devices: Glasses Review of Systems Review of Systems: As per HPI, all other systems reviewed and negative Physical Exam Physical Exam: GENERAL: Slightly uncomfortable, anxious, no respiratory distress SKIN: Normal color, warm HEENT: Novinger palpebral conjunctivae, no ptosis, dry buccal mucosa NECK : Supple, no tenderness CHEST : CTA, no tenderness HEART : RRR, no obvious murmurs ABDOMEN: Some distention, RUQ tenderness EXTREMITIES : No LE swelling/tenderness, no other conspicuous deformities noted NEUROLOGIC : Coherent, no facial asymmetry, no other gross focality Results & Data Results & Data Vital Signs (Past 12 Hours) Vital Signs Temp Pulse Pulse Resp BP BP Pulse Ox 10/01/23 01:25 66 10/01/23 01:22 69 18 135/82 99 09/30/23 23:09 36.8 C 97 H 18 165/91 H 99 O2 Del Method 10/01/23 01:25 10/01/23 01:22 Room Air 09/30/23 23:09 Room Air Laboratory Results Laboratory Results WBC 5.76 K/ul (4.8-10.8) 09/30/23 23:14 RBC 4.43 M/uL (4.70-6.10) L 09/30/23 23:14 Hgb 13.7 g/dl (14.0-18.0) L 09/30/23 23:14 Hct 39.9 % (42.0-52.0) L 09/30/23 23:14 MCV 90.1 fL (80.0-100.0) 09/30/23 23:14 MCH 30.9 pg (25.0-34.0) 09/30/23 23:14 MCHC 34.3 g/dL (32.0-36.0) 09/30/23 23:14 RDW Std Deviation 40.2 fL (36.4-46.3) 09/30/23 23:14 RDW Coeff of Kristyn 12.2 % (11.5-14.5) 09/30/23 23:14 Plt Count 196 K/uL (130-400) 09/30/23 23:14 MPV 9.4 fL (9.4-12.4) 09/30/23 23:14 Immature Gran % (Auto) 0.2 % 09/30/23 23:14 Neut % (Auto) 54.4 % 09/30/23 23:14 Lymph % (Auto) 39.1 % 09/30/23 23:14 [place] % (Auto) 6.1 % 09/30/23 23:14 Eos % (Auto) 0.2 % 09/30/23 23:14 Baso % (Auto) 0.0 % 09/30/23 23:14 Neut # (Auto) 3.14 K/uL (1.40-6.50) 09/30/23 23:14 Lymph # (Auto) 2.25 K/uL (1.20-3.40) 09/30/23 23:14 [place] # (Auto) 0.35 K/uL (0.11-0.59) 09/30/23 23:14 Eos # (Auto) 0.01 K/uL (0.00-0.50) 09/30/23 23:14 Baso # (Auto) 0.00 K/uL (0.00-0.20) 09/30/23 23:14 Immature Gran # (Auto) 0.01 K/uL (0.01-0.20) 09/30/23 23:14 Sodium 140 mmol/L (136-145) 09/30/23 23:14 Potassium 3.8 mmol/L (3.5-5.1) 09/30/23 23:14 Chloride 106 mmol/L (98-107) 09/30/23 23:14 Carbon Dioxide 25 mmol/L (21-32) 09/30/23 23:14 Anion Gap 9 (3-11) 09/30/23 23:14 BUN 25 mg/dl (6-23) H 09/30/23 23:14 Creatinine 1.31 mg/dl (0.6-1.4) 09/30/23 23:14 Est Cr Clr Drug Dosing 76.6 ml/min 09/30/23 23:14 Est GFR ( Amer) 76.2 ml/min 09/30/23 23:14 Est GFR (Non-Af Amer) 65.8 ml/min 09/30/23 23:14 BUN/Creatinine Ratio 19.1 (10-20) 09/30/23 23:14 Glucose 115 mg/dl (70-99(Fasting)) H 09/30/23 23:14 Calcium 9.7 mg/dl (8.6-10.3) 09/30/23 23:14 Total Bilirubin 0.7 mg/dl (0.2-1.0) 09/30/23 23:14 AST 16 U/L (13-39) 09/30/23 23:14 ALT 13 U/L (7-52) 09/30/23 23:14 Alkaline Phosphatase 76 U/L (34-104) 09/30/23 23:14 Troponin I High Sens 3.2 pg/ml (0-20) 10/01/23 01:08 Total Protein 7.4 gm/dl (6.0-8.3) 09/30/23 23:14 Albumin 5.0 gm/dl (3.4-5.0) 09/30/23 23:14 Globulin 2.4 gm/dl (2.5-4.0) L 09/30/23 23:14 Albumin/Globulin Ratio 2.1 (0.9-2) H 09/30/23 23:14 Lipase 30 U/L (11-82) 09/30/23 23:14 Urine Color Yellow 09/30/23 23:20 Urine Appearance Clear (Clear) 09/30/23 23:20 Urine pH 7.5 (4.5-7.5) 09/30/23 23:20 Ur Specific [place] 1.018 (1.000-1.030) 09/30/23 23:20 Urine Protein Negative (Negative) 09/30/23 23:20 Urine Glucose (UA) Negative (Negative) 09/30/23 23:20 Urine Ketones Negative (Negative) 09/30/23 23:20 Urine Blood Negative (Negative) 09/30/23 23:20 Urine Nitrite Negative (Negative) 09/30/23 23:20 Urine Bilirubin Negative (Negative) 09/30/23 23:20 Urine Urobilinogen Negative (Negative) 09/30/23 23:20 Ur Leukocyte Esterase Negative (Negative) 09/30/23 23:20 Impressions Abdomen/Pelvis CT 09/30/23 23:44 Exam(s): CT ABDOMEN + PELVIS With Contrast IV Amt: 85 ml optiray 320 EXAM: CT Abdomen and Pelvis With Intravenous Contrast CLINICAL HISTORY: Reason for exam: epigastric pain. TECHNIQUE: Axial computed tomography images of the abdomen and pelvis with intravenous contrast. Automated exposure control was utilized for the study. A dose lowering technique was utilized adhering to the principles of ALARA. CONTRAST: Patient received 85 ml optiray 320 of IV contrast COMPARISON: 01/15/2022. FINDINGS: Lung bases: Unremarkable. No mass. No consolidation. ABDOMEN: Liver: Scattered punctate calcifications. No mass. Gallbladder and bile ducts: Demonstrate a 1.2 cm calcified gallstones within the gallbladder. Slightly interesting gallbladder mason. Gallbladder otherwise unremarkable. No ductal dilation. Pancreas: Unremarkable. No mass. No ductal dilation. Spleen: Scattered punctate calcifications. No splenomegaly. Adrenals: Unremarkable. No mass. Kidneys and ureters: Unremarkable. No solid mass. No hydronephrosis. Stomach and bowel: No obstruction or ileus. Moderate stool throughout the colon. No evidence for diverticulitis. PELVIS: Appendix: No findings to suggest acute appendicitis. Bladder: Partially contracted with nonspecific wall thickening. No mass. Reproductive: Unremarkable prostate gland. ABDOMEN and PELVIS: Intraperitoneal space: No free air. No free fluid. Bones/joints: No acute fracture. Soft tissues: Unremarkable. Vasculature: Unremarkable. No abdominal aortic aneurysm. Lymph nodes: Unremarkable. No enlarged lymph nodes. IMPRESSION: No evidence for bowel obstruction or ileus. Abundant stool within the colon. Cholelithiasis. Slightly interesting gallbladder wall suggesting thickening/inflammation. No gross biliary ductal dilatation. Correlation with right upper quadrant ultrasound is recommended. Otherwise no change. Electronically signed by: Brandon Jaramillo M.D. 10/01/23 01:38 AM Gallbladder ultrasound: Well-distended gallbladder with 9 mm calculus either in the gallbladder neck or cystic duct. Slight gallbladder wall thickening with trace pericholecystic fluid. No evidence for biliary ductal dilatation. Gallbladder fundal wall possible adenomyomatosis. Diagnostic Findings SiskEKG as per my interpretation : Rate 70, NSR, RBBB, no ischemia
[2023-10-01] MEDS: LACTATED RINGER'S 1,000 ML IV ONE (02:31)
--- NOTE | 2023-10-01 04:01 | Ultrasound Report ---
Exam(s): US GALLBLADDER EXAM: US Abdomen Limited, Gallbladder CLINICAL HISTORY: Reason for exam: RUQ abdominal pain. TECHNIQUE: Real-time ultrasound of the right upper quadrant with image documentation. COMPARISON: No relevant prior studies available. FINDINGS: Liver: 17.9 cm length. Gallbladder: Well-distended measuring up to 9.3 cm length. Mild diffuse gallbladder wall thickening at 3.2 mm. 9 mm probable calculus in the region of the gallbladder neck versus cystic duct. Small echogenic shadowing foci in the gallbladder fundal wall suggesting adenomyomatosis. Trace pericholecystic fluid. Patient received medication prior to study and cannot assess for a Navarro's sign. Common bile duct: 4.6 mm diameter. No stones. No dilation. Pancreas: Poorly seen due to bowel gas. No hydronephrosis. IMPRESSION: Well-distended gallbladder with 9 mm calculus either in the gallbladder neck or cystic duct. Slight gallbladder wall thickening with trace pericholecystic fluid. No evidence for biliary ductal dilatation. Gallbladder fundal wall possible adenomyomatosis. Electronically signed by: Brandon Jaramillo M.D. 10/01/23 03:59 AM
[2023-10-01 05:49] LABS: Hematocrit (blood only) 36.9 % (42.0-52.0); Hemoglobin 12.6 g/dl (14.0-18.0); Immature Granulocytes # (auto) 0.02 K/uL (0.01-0.20); Immature Granulocytes % (auto) 0.2 %; Lymphocytes # (auto) 1.12 K/uL (1.20-3.40); Lymphocytes % (auto) 13.3 %; Mean Corpuscular Hemoglobin 30.6 pg (25.0-34.0); Mean Corpuscular Hgb Conc 34.1 g/dL (32.0-36.0); Mean Corpuscular Volume 89.6 fL (80.0-100.0); Mean Platelet Volume 9.5 fL (9.4-12.4); Monocytes # (auto) 0.32 K/uL (0.11-0.59); Monocytes % (auto) 3.8 %; Neutrophils # (auto) 6.94 K/uL (1.40-6.50); Neutrophils % (auto) 82.7 %; Platelet Count 190 K/uL (130-400); RDW Coefficient of Variation 12.2 % (11.5-14.5); Red Blood Count 4.12 M/uL (4.70-6.10)
[2023-10-01 06:05] LABS: Albumin Globulin Ratio 2.1 (0.9-2); Albumin Level 4.4 gm/dl (3.4-5.0); BUN Creatinine Ratio 18.8 (10-20); Bilirubin,Total 0.9 mg/dl (0.2-1.0); Calcium 9.1 mg/dl (8.6-10.3); Creatinine Clr Calc Pharmacy 85.8 ml/min; Est GFR (African American) 87.4 ml/min; Est GFR (Non-African American) 75.4 ml/min; Globulin 2.1 gm/dl (2.5-4.0); Total Protein 6.5 gm/dl (6.0-8.3)
[2023-10-01] MEDS ORDERED: POLYETHYLENE (MIRALAX) 17 GM PACK PO PRN (08:49)
[2023-10-01] MEDS ORDERED: DOCUSATE SODIUM 100 MG CAP PO SCH (09:00)
[2023-10-01] MEDS: FEXOFENADINE HCL 180 MG TAB PO SCH (09:03)
[2023-10-01] MEDS: risperiDONE 2 MG TABLET PO SCH (09:03)
[2023-10-01] MEDS: MULTIVITAMIN TAB PO SCH (09:03)
[2023-10-01] MEDS: DOCUSATE SODIUM 100 MG CAP PO SCH (09:03)
--- NOTE | 2023-10-01 09:43 | Surgery Consultation ---
Date of Consultation October 01, 2023 Assessment & Plan (1) Cholelithiases: Patient is a 43 yo male with PMH of GERD, abdominal pain that presented to the [facility] last night after experiencing severe abdominal pain with N/V after eating some chicken wings. He states the abdominal pain started in his chest and moved down to his epigastric region , feeling like someone kicked him in the stomach. He denies fevers, and has no history of prior severe abdominal pain after eating greasy fatty foods. He currently reports no abdominal pain after being medicated. Last ate 1800 09/30/23 took AM meds with sips of water. He denies previous abdominal surgeries and does not take blood thinners. While in the ER patient underwent an abd/pelvis CT scan showing : Cholelithiasis. Slightly interesting gallbladder wall suggesting thickening/inflammation. No gross biliary ductal dilatation. A follow up ultrasound showing : Well-distended gallbladder with 9 mm calculus either in the gallbladder neck or cystic duct. Slight gallbladder wall thickening with trace pericholecystic fluid. No evidence for biliary ductal dilatation. Gallbladder fundal wall possible adenomyomatosis. On exam the patient is in no acute distress, has been medicated for his abdominal pain and recurrently reports he is comfortable. Abdomen is non distend, with tenderness to RUQ with palpation. He is afebrile with a normal WBC count and non elevated LFTs. CT and ultrasound results discussed with the patient, as well as surgical intervention for a laparoscopic cholecystectomy. Risks of surgery reviewed to included bleeding , infection, continued pain, injury to other organs, need for further surgery, anesthesia complications , . The patient would like to proceed with a laparoscopic cholecystectomy with Dr. Ya. Patient is being admitted to the hospitalist service. Keep NPO IV Fluids for hydration IV antiemetic prn IV antibiotics was starting in the ER (zosyn) IV analgesic prn Timing of surgery today will depend on OR schedule. Supervising Physician Co-Signing Physician Notes I personally saw and evaluated the patient with Bernard OLIVEIRA and agree with the assessment and plan. 43 yo male with acute cholecystitis US and CT images were personally viewed and interpreted by myself He has some wall thickening and TTP on exam consistent with cholecystitis Will plan on laparoscopic cholecystectomy, possible open, possible IOC Consent was obtained, risks discussed including bleeding, infection, bile leak, ductal injury History of Present Illness Reason for Consultation: distended gallbladder Attending Physician: Fabian Haq MD History of Present Illness Patient is a 43 yo male with PMH of GERD, abdominal pain that presented to the [facility] last night after experiencing severe abdominal pain with N/V after eating s ome chicken wings. He states the abdominal pain started in his chest and moved down to his epigastric region , feeling like someone kicked him in the stomach. He denies fevers, and has no history of prior severe abdominal pain after eating greasy fatty foods. He currently reports no abdominal pain after being medicated. Last ate 1800 09/30/23 took AM meds with sips of water. He denies previous abdominal surgeries and does not take blood thinners. Allergies Allergy/AdvReac Type Severity Reaction Status Date / Time No Known Allergies Allergy Unverified 10/01/23 00:33 Home Medications Medication Instructions Recorded Confirmed Type ascorbic acid (vitamin C) 500 mg 500 mg PO QAM 10/01/23 10/01/23 History tablet (Vitamin C) docusate sodium 100 mg capsule 100 mg PO QAM 10/01/23 10/01/23 History (Stool Softener) fexofenadine 180 mg tablet 180 mg PO QAM 10/01/23 10/01/23 History multivitamin 1 tab PO QAM 10/01/23 10/01/23 History psyllium husk 0.52 gram capsule 0.52 g PO QAM 10/01/23 10/01/23 History (Daily Fiber) risperidone 2 mg tablet 2 mg PO QAM 10/01/23 10/01/23 History trazodone 100 mg tablet 100 mg PO UD PRN Sleep 10/01/23 10/01/23 History Patient History Medical History (Updated 10/01/23 @ 12:28 by Isaak Traore MD) Anemia GERD (gastroesophageal reflux disease) Social History Smoking Status: Never smoker Hx Alcohol Use: Yes Hx Substance Use: No Preferred Language: Zimbabwean Communication Ability: Effective Resource Director Required: No Beliefs That Will Affect Care: None Current Living Situation: Alone Other Information That Helps Us Care for You: No Feels Safe at Home: Yes Safety Concerns: Feels Safe At This Time Assistive Devices: Glasses Review of Systems Constitutional: no fever Eyes: no problem reported Respiratory: no dyspnea Cardiovascular: no chest pain Gastrointestinal: + abdominal pain, + nausea and + vomitin g Musculoskeletal: no muscle weakness Physical Exam Physical Exam: alert oriented Constitutional: cooperative; no acute distress ENMT: external ear and nose normal, oropharynx normal Respiratory: normal respiratory effort and able to speak in complete sentences; no respiratory distress Cardiovascular: Rate/Rhythm: regular rate Gastrointestinal (Abdomen): Inspection/Auscultation: abdomen not distended Percussion/Palpation: + abdomen tender (RUQ) and abdomen soft Musculoskeletal: no cyanosis or clubbing, extremities motor strength 5/5 Results & Data Vital Signs (Past 12 Hours) Vital Signs Temp Pulse Pulse Resp BP BP Pulse Ox 10/01/23 07:07 97.5 F L 67 18 129/77 98 10/01/23 02:30 62 19 129/76 95 10/01/23 02:00 61 14 139/77 95 10/01/23 01:30 65 15 143/83 H 100 10/01/23 01:25 66 10/01/23 01:22 69 18 135/82 99 09/30/23 23:09 98.2 F 97 H 18 165/91 H 99 O2 Del Method 10/01/23 07:07 Room Air 10/01/23 02:30 Room Air 10/01/23 02:00 Room Air 10/01/23 01:30 Room Air 10/01/23 01:25 10/01/23 01:22 Room Air 09/30/23 23:09 Room Air Diagnostic Findings [place], [place] [phone] CT Scan Report Patient: BRANDON VENCES Admit Date: 09/30/23 MR#: [id number] Address[address]: [address] Acct ID:[id number] Address2: Date: 1980 [facility] Zip: [place] [address] Age: 43 Location: ED Sex: M Room/Bed: Att Phy: Diagnosis: Abdominal Pain, Nausea Maribel Phy: Kevin Vora MD Service Date: 09/30/23 Fam Phy: Interpreting Phy: Brandno Jaramillo MDAdmit Phy: Ordering Phy: Katt Orellana MD cc: ~ Exam(s): CT ABDOMEN + PELVIS With Contrast IV Amt: 85 ml optiray 320 EXAM: CT Abdomen and Pelvis With Intravenous Contrast CLINICAL HISTORY: Reason for exam: epigastric pain. TECHNIQUE: Axial computed tomography images of the abdomen and pelvis with intravenous contrast. Automated exposure control was utilized for the study. A dose lowering technique was utilized adhering to the principles of ALARA. CONTRAST: Patient received 85 ml optiray 320 of IV contrast COMPARISON: 01/15/2022. FINDINGS: Lung bases: Unremarkable. No mass. No consolidation. ABDOMEN: Liver: Scattered punctate calcifications. No mass. Gallbladder and bile ducts: Demonstrate a 1.2 cm calcified gallstones within the gallbladder. Slightly interesting gallbladder mason. Gallbladder otherwise unremarkable. No ductal dilation. Pancreas: Unremarkable. No mass. No ductal dilation. Spleen: Scattered punctate calcifications. No splenomegaly. Adrenals: Unremarkable. No mass. Kidneys and ureters: Unremarkable. No solid mass. No hydronephrosis. Stomach and bowel: No obstruction or ileus. Moderate stool throughout the colon. No evidence for diverticulitis. PELVIS: Appendix: No findings to suggest acute appendicitis. Bladder: Partially contracted with nonspecific wall thickening. No mass. Reproductive: Unremarkable prostate gland. ABDOMEN and PELVIS: Intraperitoneal space: No free air. No free fluid. Bones/joints: No acute fracture. Soft tissues: Unremarkable. Vasculature: Unremarkable. No abdominal aortic aneurysm. Lymph nodes: Unremarkable. No enlarged lymph nodes. IMPRESSION: No evidence for bowel obstruction or ileus. Abundant stool within the colon. Cholelithiasis. Slightly interesting gallbladder wall suggesting thickening/inflammation. No gross biliary ductal dilatation. Correlation with right upper quadrant ultrasound is recommended. Otherwise no change. Electronically signed by: Brandon Jaramillo M.D. 10/01/23 01:38 AM Dictated: 10/01/23137 Transcribed: 10/01/23137 [place], [place] [phone] Ultrasound Report Patient: BRANDON VENCES Admit Date: 10/01/23 MR#: [id number] Address[address]: [address] Acct ID:[id number] Address2: Date: 1980 [facility] Zip: [place] [address] Age: 43 Location: [facility] Sex: M Room/Bed: [facility] 1-26 Att Phy: Fabian Haq MD Diagnosis: ABDOMINAL PAIN Maribel Phy: Kevin Vora MD Service Date: 10/01/23 [facility] Phy: Interpreting Phy: Brandon Jaramillo MDAdmit Phy: Braulio Mccann MD Ordering Phy: Katt Orellana MD cc: ~ Exam(s): US GALLBLADDER EXAM: US Abdomen Limited, Gallbladder CLINICAL HISTORY: Reason for exam: RUQ abdominal pain. TECHNIQUE: Real-time ultrasound of the right upper quadrant with image documentation. COMPARISON: No relevant prior studies available. FINDINGS: Liver: 17.9 cm length. Gallbladder: Well-distended measuring up to 9.3 cm length. Mild diffuse gallbladder wall thickening at 3.2 mm. 9 mm probable calculus in the region of the gallbladder neck versus cystic duct. Small echogenic shadowing foci in the gallbladder fundal wall suggesting adenomyomatosis. Trace pericholecystic fluid. Patient received medication prior to study and cannot assess for a Navarro's sign. Common bile duct: 4.6 mm diameter. No stones. No dilation. Pancreas: Poorly seen due to bowel gas. No hydronephrosis. IMPRESSION: Well-distended gallbladder with 9 mm calculus either in the gallbladder neck or cystic duct. Slight gallbladder wall thickening with trace pericholecystic fluid. No evidence for biliary ductal dilatation. Gallbladder fundal wall possible adenomyomatosis. Electronically signed by: Brandon Jaramillo M.D. 10/01/23 03:59 AM Dictated: 10/01/23358 Transcribed: 10/01/23358 Results Complete Blood Count Results: RBC 4.12 M/uL (4.70-6.10) L 10/01/23 WBC 8.40 K/ul (4.8-10.8) 10/01/23 Hgb 12.6 g/dl (14.0-18.0) L 10/01/23 Hct 36.9 % (42.0-52.0) L 10/01/23 Plt Count 190 K/uL (130-400) 10/01/23 Results CMP Results: Na 138 mmol/L (136-145) 10/01/23 K 4.0 mmol/L (3.5-5.1) 10/01/23 Cl 108 mmol/L (98-107) H 10/01/23 CO2 24 mmol/L (21-32) 10/01/23 Anion Gap 6 (3-11) 10/01/23 BUN 22 mg/dl (6-23) 10/01/23 Creatinine 1.17 mg/dl (0.6-1.4) 10/01/23 Estimated GFR ( Amer) 87.4 ml/min 10/01/23 Estimated GFR (Non-Af Amer) 75.4 ml/min 10/01/23 BUN/Creatinine Ratio 18.8 (10-20) 10/01/23 Glu 117 mg/dl (70-99(Fasting)) H 10/01/23 Ca 9.1 mg/dl (8.6-10.3) 10/01/23 Total Bilirubin 0.9 mg/dl (0.2-1.0) 10/01/23 AST 14 U/L (13-39) 10/01/23 ALT 11 U/L (7-52) 10/01/23 Alkaline Phosphatase 63 U/L (34-104) 10/01/23 TP 6.5 gm/dl (6.0-8.3) 10/01/23 Albumin 4.4 gm/dl (3.4-5.0) 10/01/23 Globulin 2.1 gm/dl (2.5-4.0) L 10/01/23 Albumin/Globulin Ratio 2.1 (0.9-2) H 10/01/23 PG Care Time/CCT Total # of Minutes Spent Total Time Spent with Patient: Total time spent is greater than 50% in coordination of care (as documented) at patient's floor/unit and/or counseling patient: Coding Level of Care Code 30428 INT INP/OBS CARE 75MIN Diagnoses Cholelithiases K80.20
[2023-10-01] MEDS: PIPER/TAZO 4.5g in D5W MINI-B 100 ML IV ONE (09:49)
--- NOTE | 2023-10-01 12:27 | Anesthesiology Consultation ---
Date of Service October 01, 2023 Assessment & Plan (1) Encounter for pre-operative examination: Chart Review Chart Review: Acceptable Risk for Surgery History Surgery Operation Date: 10/01/23 11:35 Proposed Procedures p Laparoscopic Cholecystectomy - David Ya DO Height/Weight Height: 5 ft 11 in Weight: 87.8 kg Allergies Allergy/AdvReac Type Severity Reaction Status Date / Time No Known Allergies Allergy Unverified 10/01/23 00:33 Medications Home Medications Medication Instructions Recorded Confirmed Last Taken ascorbic acid (vitamin C) 500 mg 500 mg PO QAM 10/01/23 10/01/23 09/30/23 tablet (Vitamin C) docusate sodium 100 mg capsule 100 mg PO QAM 10/01/23 10/01/23 09/30/23 (Stool Softener) fexofenadine 180 mg tablet 180 mg PO QAM 10/01/23 10/01/23 09/30/23 multivitamin 1 tab PO QAM 10/01/23 10/01/23 09/30/23 psyllium husk 0.52 gram capsule 0.52 g PO QAM 10/01/23 10/01/23 09/30/23 (Daily Fiber) risperidone 2 mg tablet 2 mg PO QAM 10/01/23 10/01/23 09/30/23 trazodone 100 mg tablet 100 mg PO UD PRN Sleep 10/01/23 10/01/23 Unknown Active Medications Generic Name Dose Route Start Last Admin Trade Name Freq PRN Reason Stop Dose Admin Docusate Sodium 100 mg 10/01/23 09:00 10/01/23 09:03 Docusate Sodium 100 Mg Cap PO 10/31/23 08:59 100 mg BID KYLE Administration Fexofenadine HCl 180 mg 10/01/23 09:00 10/01/23 09:03 Fexofenadine Hcl 180 Mg Tab PO 10/31/23 08:59 180 mg QAM KYLE Administration Lactated Ringer's 1,000 mls @ 80 mls/hr 10/01/23 02:00 10/01/23 02:31 Lr IV 10/01/23 14:29 80 mls/hr .[id number] Administration Multivitamins 1 tab 10/01/23 09:00 10/01/23 09:03 Multivitamin Tab PO 10/31/23 08:59 1 tab QAM KYLE Administration Risperidone 2 mg 10/01/23 09:00 10/01/23 09:03 Risperidone 2 Mg Tablet PO 10/31/23 08:59 2 mg QAM KYLE Administration Past Medical History Medical History (Updated 10/01/23 @ 12:28 by Isaak Traore MD) Anemia GERD (gastroesophageal reflux disease) Social History Smoking Status: Never smoker Hx Alcohol Use: Yes alcohol intake frequency: holidays/special occasions only Hx Substance Use: No Physical Exam Vital Signs Last Vital Signs Temp 36.5 C 10/01/23 12:21 Pulse 70 10/01/23 12:21 Resp 18 10/01/23 12:21 BP 137/79 10/01/23 12:21 Pulse Ox 97 10/01/23 12:21 O2 Del Method Room Air 10/01/23 12:21 Testing Laboratory Results 10/01/23 04:50 10/01/23 04:50 Urine Color Yellow 09/30/23 23:20 Urine Appearance Clear (Clear) 09/30/23 23:20 Urine pH 7.5 (4.5-7.5) 09/30/23 23:20 Ur Specific [place] 1.018 (1.000-1.030) 09/30/23 23:20 Urine Protein Negative (Negative) 09/30/23 23:20 Urine Glucose (UA) Negative (Negative) 09/30/23 23:20 Urine Ketones Negative (Negative) 09/30/23 23:20 Urine Nitrite Negative (Negative) 09/30/23 23:20 Ur Leukocyte Esterase Negative (Negative) 09/30/23 23:20 Electrocardiogram Date: 10/01/23 Findings: + NSR @ (93) and + RBBB
[2023-10-01] MEDS ORDERED: ATROPINE SULFATE 0.1 MG/ML 10ML SYR IV PRN ×2 (12:44→14:54)
[2023-10-01] MEDS ORDERED: PROMETHAZINE HCL 6.25 MG in SODIUM CHLORIDE 0.9% 50 ML IV PRN (12:44)
[2023-10-01] MEDS ORDERED: ONDANSETRON INJ 2 MG/ML 2 ML VIAL ONE (12:57)
[2023-10-01] MEDS ORDERED: DEXAMETHASONE SOD INJ 4 MG/ML VIAL ONE (12:57)
[2023-10-01] MEDS ORDERED: PROPOFOL IV EMULSION 10 MG/ML 20 ML VIAL IV ONE (12:57)
[2023-10-01] MEDS ORDERED: LIDOCAINE 2% 2 ML VIAL/AMP(20MG/ML) INFIL ONE (12:57)
[2023-10-01] MEDS ORDERED: ROCURONIUM BROMIDE 10 MG/ML 5 ML VIAL IV ONE (12:57)
[2023-10-01] MEDS ORDERED: GLYCOPYRROLATE 0.2 MG/ML VIAL ONE (12:57)
[2023-10-01] MEDS ORDERED: fentaNYL citrate PF 100 MCG/2 ML VIAL ONE ×2 (12:57→13:39)
[2023-10-01] MEDS ORDERED: MIDAZOLAM HCL 1 MG/ML 2ML VIAL ONE (12:58)
[2023-10-01] MEDS ORDERED: SUGAMMADEX SODIUM 200 MG/2 ML VIAL IV ONE (13:00)
--- NOTE | 2023-10-01 13:02 | Hospitalist Progress Note ---
Date of Service October 01, 2023 Assessment & Plan (1) Abdominal pain: Plan: Acute cholecystitis Cholelithiasis --CT ABD:No evidence for bowel obstruction or ileus. Abundant stool within the colon. Cholelithiasis. Slightly interesting gallbladder wall suggesting thickening/inflammation. No gross biliary ductal dilatation. Correlation with right upper quadrant ultrasound is recommended. Otherwise no change. --Gall Bladder USD:Well-distended gallbladder with 9 mm calculus either in the gallbladder neck or cystic duct. Slight gallbladder wall thickening with trace pericholecystic fluid. No evidence for biliary ductal dilatation. Gallbladder fundal wall possible adenomyomatosis. -- Blood cultures pending --Continue Zosyn Continue IV fluids Pain Control Appreciate surgery input Plan for laparoscopic cholecystectomy today Hyperlipidemia not on statin Mood disorder Continue home meds DVT Px: SCDs for now Code Status Full code Subjective Patient is seen and examined at bedside Admits to have abdominal pain but better since admission Denies any nausea, vomiting, chest pain, dyspnea Plan for laparoscopic cholecystectomy today No other complaints Review of Systems Review of Systems: All systems reviewed & are unremarkable except as noted in Subjective Physical Exam Physical Exam: Physical Exam: Vitals signs as noted above General Appearance:Moderately built and nourished, no apparent distress Head: normocephalic, Atraumatic Eyes: normal inspection, EOMI Neck: supple, Trachea midline Respiratory/Chest: Normal breath sounds, CTA, No accessory muscle use Cardiovascular: S1, S2, No murmur Abdomen/GI:Soft, RUQ tender, Bowel sounds present Extremities/Musculoskeletal:normal inspection, no edema Neurologic/Psych:AAOX3, grossly no focal neurological deficits Skin: normal color, warm Results & Data Results & Data Vital Signs (Past 12 Hours) Vital Signs Temp Pulse Pulse Resp BP BP Pulse Ox 10/01/23 12:21 36.5 C 70 18 137/79 97 10/01/23 11:15 67 19 123/76 99 10/01/23 09:43 63 20 117/69 97 10/01/23 07:07 36.4 C L 67 18 129/77 98 10/01/23 02:30 62 19 129/76 95 10/01/23 02:00 61 14 139/77 95 10/01/23 01:30 65 15 143/83 H 100 10/01/23 01:25 66 10/01/23 01:22 69 18 135/82 99 O2 Del Method 10/01/23 12:21 Room Air 10/01/23 11:15 Room Air 10/01/23 09:43 Room Air 10/01/23 07:07 Room Air 10/01/23 02:30 Room Air 10/01/23 02:00 Room Air 10/01/23 01:30 Room Air 10/01/23 01:25 10/01/23 01:22 Room Air
[2023-10-01] MEDS: FLOSEAL HEMOSTATIC MATRIX 10ML TOP ONE (14:24)
[2023-10-01] MEDS: BUPIVACAINE/EPINEPHRINE 0.5% MPF 1:200,000 30 ML VIAL ONE (14:28)
--- NOTE | 2023-10-01 14:40 | Post Operative Brief Note ---
PG Immediate Post Op with CF Date of Surgery October 01, 2023 Pre & Post Diagnosis Operation Date: 10/01/23 11:35 Pre-Op Diagnosis: Acute Cholecystitis Post-Op Diagnosis: Acute Cholecystitis I identified the patient and participated in the time-out.: Yes Procedure Operation Date: 10/01/23 11:35 Actual Procedures p Laparoscopic Cholecystectomy(Not Applicable) - David Ya DO Surgeon David Ya DO Vault Person None Estimated Blood Loss 20 Findings See Below Acutely inflamed, distended edematous gallbladder consistent with acute cholecystitis Specimens Specimen Description: A. Gallbladder Complications none Disposition Disposition: Recovery Room
--- NOTE | 2023-10-01 14:43 | Operative Report ---
PG Post Operative Report Pre & Post Diagnosis Operation Date: 10/01/23 11:35 Pre-Op Diagnosis: Acute Cholecystitis Post-Op Diagnosis: Acute Cholecystitis I identified the patient and participated in the time-out.: Yes Procedure Operation Date: 10/01/23 11:35 Actual Procedures p Laparoscopic Cholecystectomy(Not Applicable) - David Ya DO Surgeon David Ya DO Gas Meter Mechanic None Estimated Blood Loss 20 Findings See Below Acutely inflamed, distended edematous gallbladder consistent with acute cholecystitis Fluids see anesthesia record Specimens Gallbladder to pathology Drains None Anesthesia Type General Complications none Disposition Disposition: Recovery Room Indications 43 yo male with acute cholecystitis Description of Procedure The patient was brought to the operating room and placed in the supine position with both arms extended. At this time he underwent general endotracheal anesthesia without any problems. He was given appropriate pre-operative antibiotics. His abdomen prepped and draped in the usual sterile fashion. A timeout was called, the procedure was verified as Laparoscopic cholecystectomy, possible open, possible intra-operative cholangiogram. Surgical, nursing and anesthesia teams agreed and the procedure was begun. After injection of 0.25% Marcaine with epinephrine, a supraumbilical vertical incision was made and carried down to the fascia using S-retractors. The abdominal wall was then elevated with towel clamps and abdomen entered using the Veress needle confirming position using the saline drop test. Pneumoperitoneum was established. 5mm trocar was placed. Laparoscope was introduced. No injury from entry into the abdomen was visualized after inspection of the abdomen. Three further ports were placed under direct visualization. One 11mm in the subxiphoid region and two 5mm in the RUQ. At this time the abdomen was inspected and the gallbladder identified. The gallbladder fundus was grasped and retracted cephalad. The gallbladder had fat wrapping and omental adhesions present that were lysed with a combination of sharp and blunt dissection. The gallbladder infundibulum was then grasped and retracted laterally. The cystic duct and cystic artery were then identified and skeletonized. The critical view of safety was obtained. They were both then clipped twice proximally and once distally and then divided using scissors. The gallbladder was then taken off of the liver bed using electrocautery and placed in an endocatch bag and removed from the subxiphoid port. The liver bed was then inspected and no bile leak or bleeding was evident. 10mL of Floseal hemostatic agent was placed in the gallbladder fossa. The subxiphoid port was then closed using 0-Vicryl using the suture passer. The trocars were then removed under direct visualization and no bleeding was present.Abdomen was desufflated. The skin was then closed using 4- 0 Monocryl in a subcuticular fashion. Surgical glue was applied. Needle and sponge counts were correct x 2. At this time the patient was awoken from anesthesia and extubated having remained stable throughout the entire case. The patient was then transported to PACU in stable condition. I attest to the content of the Intraoperative Record and any orders documented therein. Any exceptions are noted below.
[2023-10-01] MEDS ORDERED: ePHEDrine sulfate 50 MG/ML AMP IV PRN (14:54)
[2023-10-01] MEDS: MEPERIDINE HCL 25 MG/ML CARP/VIAL IV PRN (14:57)
[2023-10-01] MEDS: HYDROmorphone INJ 1 MG/ML SYRINGE IV PRN (15:13)
[2023-10-01] MEDS: KETOROLAC 30 MG/ML VIAL IV PRN (15:27)
[2023-10-01] MEDS: MEPERIDINE HCL 25 MG/ML CARP/VIAL ONE (15:27)
--- NOTE | 2023-10-01 16:06 | Anesthesiology Progress Note ---
Date of Service October 01, 2023 Anesthesia Post Procedure Vital Signs Vital Signs: Temp Pulse Pulse Pulse Resp BP BP 10/01/23 15:55 37.2 C 66 14 126/73 10/01/23 15:45 78 14 140/77 10/01/23 15:35 69 18 131/75 10/01/23 15:25 65 18 142/80 H 10/01/23 15:15 76 20 148/80 H 10/01/23 15:05 80 18 138/77 10/01/23 14:55 101 H 20 150/74 H 10/01/23 14:48 36 C L 110 H 22 136/106 H 10/01/23 12:21 36.5 C 70 18 137/79 10/01/23 11:15 67 19 123/76 10/01/23 09:43 63 20 117/69 10/01/23 07:07 36.4 C L 67 18 129/77 10/01/23 02:30 62 19 129/76 10/01/23 02:00 61 14 139/77 10/01/23 01:30 65 15 143/83 H 10/01/23 01:25 66 10/01/23 01:22 69 18 135/82 09/30/23 23:09 36.8 C 97 H 18 165/91 H Pulse Ox O2 Del Method O2 Flow Rate 10/01/23 15:55 95 Room Air 10/01/23 15:45 98 Room Air 10/01/23 15:35 96 Room Air 10/01/23 15:25 95 Room Air 10/01/23 15:15 98 Room Air 10/01/23 15:05 100 Room Air 10/01/23 14:55 100 Oxymask 4 10/01/23 14:48 99 Oxymask 8 10/01/23 12:21 97 Room Air 10/01/23 11:15 99 Room Air 10/01/23 09:43 97 Room Air 10/01/23 07:07 98 Room Air 10/01/23 02:30 95 Room Air 10/01/23 02:00 95 Room Air 10/01/23 01:30 100 Room Air 10/01/23 01:25 10/01/23 01:22 99 Room Air 09/30/23 23:09 99 Room Air Pain Intensity Left Hip: Pain Intensity: 4 Abdomen: Pain Intensity: 6 Transfer of Care Handoff Completed per policy Notes Mental Status: alert / awake / arousable and participated in evaluation Patient Amnestic to Procedure: Yes Nausea / Vomiting: adequately controlled Pain: adequately controlled Airway Patency, RR, SpO2: stable & adequate BP & HR: stable & adequate Hydration State: stable & adequate Anesthetic Complications: no major complications apparent and Pt Satisfied with anesthetic care
[2023-10-01] MEDS: LACTATED RINGER'S 1,000 ML IV SCH (17:10)
[2023-10-01] MEDS: PIPERACILLIN/TAZOBACTAM 4.5 GM in DEXTROSE 5% MINI-B 100 ML IV SCH (17:11)
--- NOTE | 2023-10-01 19:25 | Electrocardiogram Report ---
Test Reason : Blood Pressure : / mmHG Vent. Rate : 061 BPM Atrial Rate : 061 BPM P-R Int : 130 ms QRS Dur : 134 ms QT Int : 412 ms P-R-T Axes : 035 078 026 degrees QTc Int : 414 ms Normal sinus rhythm Right bundle branch block Abnormal ECG No previous ECGs available Confirmed by Earl Bryant ([id number]) on 10/01/2023 7:25:05 PM Referred By: REFERRED SELF Confirmed By:Earl Bryant
--- NOTE | 2023-10-01 19:29 | Electrocardiogram Report ---
Test Reason : Blood Pressure : / mmHG Vent. Rate : 072 BPM Atrial Rate : 072 BPM P-R Int : 142 ms QRS Dur : 130 ms QT Int : 394 ms P-R-T Axes : 023 075 027 degrees QTc Int : 431 ms Normal sinus rhythm Right bundle branch block Abnormal ECG When compared with ECG of 30-SEP-2023 23:22, No significant change was found Confirmed by Earl Bryant ([id number]) on 10/01/2023 7:29:11 PM Referred By: REFERRED SELF Confirmed By:Earl Bryant
[2023-10-01] MEDS: ACETAMINOPHEN 325 MG TAB PO PRN (21:52)
[2023-10-01] MEDS: traZODone HCL 100 MG TAB PO PRN (22:52)
[2023-10-02] MEDS: KETOROLAC TROMETHAMINE 15 MG/ML VIAL IV PRN (03:07)
[2023-10-02] MEDS: LORazepam 0.5 MG TAB PO PRN (05:05)
[2023-10-02 07:13] LABS: Hematocrit (blood only) 34.3 % (42.0-52.0); Hemoglobin 11.7 g/dl (14.0-18.0); Mean Corpuscular Hemoglobin 30.6 pg (25.0-34.0); Mean Corpuscular Hgb Conc 34.1 g/dL (32.0-36.0); Mean Corpuscular Volume 89.8 fL (80.0-100.0); Mean Platelet Volume 9.4 fL (9.4-12.4); Platelet Count 170 K/uL (130-400); RDW Coefficient of Variation 12.3 % (11.5-14.5); RDW Standard Deviation 40.9 fL (36.4-46.3); Red Blood Count 3.82 M/uL (4.70-6.10); White Blood Count 8.77 K/ul (4.8-10.8)
[2023-10-02 07:41] LABS: BUN Creatinine Ratio 14.2 (10-20); Calcium 8.8 mg/dl (8.6-10.3); Creatinine Clr Calc Pharmacy 83.7 ml/min; Est GFR (African American) 84.7 ml/min; Est GFR (Non-African American) 73.1 ml/min; Magnesium 1.9 mg/dl (1.7-2.4)
--- NOTE | 2023-10-02 09:15 | Surgery Progress Note ---
Date of Service October 02, 2023 Assessment & Plan (1) Hx laparoscopic cholecystectomy: Plan: Doing well Can be discharged from surgical standpoint and follow up with me in 2 weeks Admission and Anticipated Discharge Date Admission Date: October 01, 2023 Subjective Pt seen and examined. Pain controlled. Tolerating diet without N/V. Afebrile. Physical Exam Constitutional: WD/WN, vitals as above Gastrointestinal (Abdomen): Dressings c/d/i Results & Data Vital Signs (Past 12 Hours) Vital Signs Temp Pulse Resp BP Pulse Ox O2 Del Method 10/02/23 07:46 36.4 C L 68 16 115/63 96 Room Air 10/02/23 04:52 36.8 C 94 H 18 124/66 96 Room Air 10/02/23 00:26 36.8 C 90 18 110/66 99 Room Air PG Care Time/CCT Total # of Minutes Spent Total Time Spent with Patient: Total time spent is greater than 50% in coordination of care (as documented) at patient's floor/unit and/or counseling patient: Coding Level of Care Code 22471 Post Operative Follow-Up Diagnoses Hx laparoscopic cholecystectomy Z90.49
--- NOTE | 2023-10-02 12:29 | Hospitalist Progress Note ---
Date of Service October 02, 2023 Assessment & Plan (1) Abdominal pain: Plan: Acute cholecystitis Cholelithiasis --CT ABD:No evidence for bowel obstruction or ileus. Abundant stool within the colon. Cholelithiasis. Slightly interesting gallbladder wall suggesting thickening/inflammation. No gross biliary ductal dilatation. Correlation with right upper quadrant ultrasound is recommended. Otherwise no change. --Gall Bladder USD:Well-distended gallbladder with 9 mm calculus either in the gallbladder neck or cystic duct. Slight gallbladder wall thickening with trace pericholecystic fluid. No evidence for biliary ductal dilatation. Gallbladder fundal wall possible adenomyomatosis. --S/P Laparoscopic Cholecystectomy on 10/01/[address] David Ya -- Blood cultures: No growth to date --Continue Zosyn>> no plan to continue antibiotics Received IV fluids Pain Control Appreciate surgery input Tolerates regular diet Needs follow-up with surgery on discharge Hyperlipidemia not on statin Mood disorder Continue home meds DVT Px: SCDs for now Code Status Full code Disposition Home Admission and Anticipated Discharge Date Admission Date: October 01, 2023 Subjective Patient is seen and examined at bedside States having minimal abdominal discomfort Tolerating current diet Denies any nausea, vomiting, chest pain, dyspnea Discussed with surgery today Plan to discharge home today Review of Systems Review of Systems: All systems reviewed & are unremarkable except as noted in Subjective Physical Exam Physical Exam: Physical Exam: Vitals signs as noted above General Appearance:Moderately built and nourished, no apparent distress Head: normocephalic, Atraumatic Eyes: normal inspection, EOMI Neck: supple, Trachea midline Respiratory/Chest: Normal breath sounds, CTA, No accessory muscle use Cardiovascular: S1, S2, No murmur Abdomen/GI:Soft, Surgical site noted, Bowel sounds present Extremities/Musculoskeletal:normal inspection, no edema Neurologic/Psych:AAOX3, grossly no focal neurological deficits Skin: normal color, warm Results & Data Results & Data Vital Signs (Past 12 Hours) Vital Signs Temp Pulse Resp BP Pulse Ox O2 Del Method 10/02/23 07:46 36.4 C L 68 16 115/63 96 Room Air 10/02/23 04:52 36.8 C 94 H 18 124/66 96 Room Air 10/02/23 00:26 36.8 C 90 18 110/66 99 Room Air Laboratory Results Short CBC 10/02/23 Range/Units 06:32 WBC 8.77 (4.8-10.8) K/ul Hgb 11.7 L (14.0-18.0) g/dl Hct 34.3 L (42.0-52.0) % Plt Count 170 (130-400) K/uL [facility] 10/02/23 06:32 Sodium 138 Potassium 4.0 Chloride 107 Carbon Dioxide 24 BUN 17 Creatinine 1.20 Glucose 122 H Calcium 8.8
--- NOTE | 2023-10-02 12:34 | Discharge Summary ---
Date of Service October 02, 2023 Admission HPI Per Admitting Provider History obtained from patient and records. Medical history significant for cholelithiasis, hyperlipidemia, mood disorder, mild intellectual disability. Last ER visit 2 years ago for abdominal pain, nausea vomiting symptoms attributed to gastroenteritis. Incidental finding of cholelithiasis on abdominal imaging. Last night, patient noted achy epigastric discomfort after consuming spicy wings. Some nausea with bilious emesis. No diarrhea symptoms. No chest pain, no SOB. No fever, no chills. 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 Admission Exam Per Admitting Provider GENERAL: Slightly uncomfortable, anxious, no respiratory distress SKIN: Normal color, warm HEENT: [place] palpebral conjunctivae, no ptosis, dry buccal mucosa NECK : Supple, no tenderness CHEST : CTA, no tenderness HEART : RRR, no obvious murmurs ABDOMEN: Some distention, RUQ tenderness EXTREMITIES : No LE swelling/tenderness, no other conspicuous deformities noted NEUROLOGIC : Coherent, no facial asymmetry, no other gross focality Principal Diagnosis Acute cholecystitis laparoscopic cholecystectomy Discharge Data Allergies Allergy/AdvReac Type Severity Reaction Status Date / Time No Known Allergies Allergy Unverified 10/01/23 00:33 Consultations 10/01/23 01:51 ED Decision to Admit Stat 10/01/23 04:42 Consult General Surgery Routine Procedures Performed Operation Date: 10/01/23 11:35 Actual Procedures p Laparoscopic Cholecystectomy(Not Applicable) - David Ya DO Ordered Studies 09/30/23 23:44 CT Abd and Pelvis [CT abd pelvis IV con only] Stat 10/01/23 01:41 US gallbladder Stat Laboratory Results WBC 8.77 K/ul (4.8-10.8) 10/02/23 06:32 RBC 3.82 M/uL (4.70-6.10) L 10/02/23 06:32 Hgb 11.7 g/dl (14.0-18.0) L 10/02/23 06:32 Hct 34.3 % (42.0-52.0) L 10/02/23 06:32 MCV 89.8 fL (80.0-100.0) 10/02/23 06:32 MCH 30.6 pg (25.0-34.0) 10/02/23 06:32 MCHC 34.1 g/dL (32.0-36.0) 10/02/23 06:32 RDW Std Deviation 40.9 fL (36.4-46.3) 10/02/23 06:32 RDW Coeff of Kristyn 12.3 % (11.5-14.5) 10/02/23 06:32 Plt Count 170 K/uL (130-400) 10/02/23 06:32 MPV 9.4 fL (9.4-12.4) 10/02/23 06:32 Immature Gran % (Auto) 0.2 % 10/01/23 04:50 Neut % (Auto) 82.7 % 10/01/23 04:50 Lymph % (Auto) 13.3 % 10/01/23 04:50 [place] % (Auto) 3.8 % 10/01/23 04:50 Eos % (Auto) 0.0 % 10/01/23 04:50 Baso % (Auto) 0.0 % 10/01/23 04:50 Neut # (Auto) 6.94 K/uL (1.40-6.50) H 10/01/23 04:50 Lymph # (Auto) 1.12 K/uL (1.20-3.40) L 10/01/23 04:50 [place] # (Auto) 0.32 K/uL (0.11-0.59) 10/01/23 04:50 Eos # (Auto) 0.00 K/uL (0.00-0.50) 10/01/23 04:50 Baso # (Auto) 0.00 K/uL (0.00-0.20) 10/01/23 04:50 Immature Gran # (Auto) 0.02 K/uL (0.01-0.20) 10/01/23 04:50 Sodium 138 mmol/L (136-145) 10/02/23 06:32 Potassium 4.0 mmol/L (3.5-5.1) 10/02/23 06:32 Chloride 107 mmol/L (98-107) 10/02/23 06:32 Carbon Dioxide 24 mmol/L (21-32) 10/02/23 06:32 Anion Gap 7 (3-11) 10/02/23 06:32 BUN 17 mg/dl (6-23) 10/02/23 06:32 Creatinine 1.20 mg/dl (0.6-1.4) 10/02/23 06:32 Est Cr Clr Drug Dosing 83.7 ml/min 10/02/23 06:32 Est GFR ( Amer) 84.7 ml/min 10/02/23 06:32 Est GFR (Non-Af Amer) 73.1 ml/min 10/02/23 06:32 BUN/Creatinine Ratio 14.2 (10-20) 10/02/23 06:32 Glucose 122 mg/dl (70-99(Fasting)) H 10/02/23 06:32 Calcium 8.8 mg/dl (8.6-10.3) 10/02/23 06:32 Magnesium 1.9 mg/dl (1.7-2.4) 10/02/23 06:32 Total Bilirubin 0.9 mg/dl (0.2-1.0) 10/01/23 04:50 AST 14 U/L (13-39) 10/01/23 04:50 ALT 11 U/L (7-52) 10/01/23 04:50 Alkaline Phosphatase 63 U/L (34-104) 10/01/23 04:50 Troponin I High Sens 3.2 pg/ml (0-20) 10/01/23 01:08 Total Protein 6.5 gm/dl (6.0-8.3) 10/01/23 04:50 Albumin 4.4 gm/dl (3.4-5.0) 10/01/23 04:50 Globulin 2.1 gm/dl (2.5-4.0) L 10/01/23 04:50 Albumin/Globulin Ratio 2.1 (0.9-2) H 10/01/23 04:50 Lipase 30 U/L (11-82) 09/30/23 23:14 Urine Color Yellow 09/30/23 23:20 Urine Appearance Clear (Clear) 09/30/23 23:20 Urine pH 7.5 (4.5-7.5) 09/30/23 23:20 Ur Specific [place] 1.018 (1.000-1.030) 09/30/23 23:20 Urine Protein Negative (Negative) 09/30/23 23:20 Urine Glucose (UA) Negative (Negative) 09/30/23 23:20 Urine Ketones Negative (Negative) 09/30/23 23:20 Urine Blood Negative (Negative) 09/30/23 23:20 Urine Nitrite Negative (Negative) 09/30/23 23:20 Urine Bilirubin Negative (Negative) 09/30/23 23:20 Urine Urobilinogen Negative (Negative) 09/30/23 23:20 Ur Leukocyte Esterase Negative (Negative) 09/30/23 23:20 Impressions Abdomen/Pelvis CT 09/30/23 23:44 Exam(s): CT ABDOMEN + PELVIS With Contrast IV Amt: 85 ml optiray 320 EXAM: CT Abdomen and Pelvis With Intravenous Contrast CLINICAL HISTORY: Reason for exam: epigastric pain. TECHNIQUE: Axial computed tomography images of the abdomen and pelvis with intravenous contrast. Automated exposure control was utilized for the study. A dose lowering technique was utilized adhering to the principles of ALARA. CONTRAST: Patient received 85 ml optiray 320 of IV contrast COMPARISON: 01/15/2022. FINDINGS: Lung bases: Unremarkable. No mass. No consolidation. ABDOMEN: Liver: Scattered punctate calcifications. No mass. Gallbladder and bile ducts: Demonstrate a 1.2 cm calcified gallstones within the gallbladder. Slightly interesting gallbladder mason. Gallbladder otherwise unremarkable. No ductal dilation. Pancreas: Unremarkable. No mass. No ductal dilation. Spleen: Scattered punctate calcifications. No splenomegaly. Adrenals: Unremarkable. No mass. Kidneys and ureters: Unremarkable. No solid mass. No hydronephrosis. Stomach and bowel: No obstruction or ileus. Moderate stool throughout the colon. No evidence for diverticulitis. PELVIS: Appendix: No findings to suggest acute appendicitis. Bladder: Partially contracted with nonspecific wall thickening. No mass. Reproductive: Unremarkable prostate gland. ABDOMEN and PELVIS: Intraperitoneal space: No free air. No free fluid. Bones/joints: No acute fracture. Soft tissues: Unremarkable. Vasculature: Unremarkable. No abdominal aortic aneurysm. Lymph nodes: Unremarkable. No enlarged lymph nodes. IMPRESSION: No evidence for bowel obstruction or ileus. Abundant stool within the colon. Cholelithiasis. Slightly interesting gallbladder wall suggesting thickening/inflammation. No gross biliary ductal dilatation. Correlation with right upper quadrant ultrasound is recommended. Otherwise no change. Electronically signed by: Brandon Jaramillo M.D. 10/01/23 01:38 AM Gallbladder Ultrasound 10/01/23 01:41 Exam(s): US GALLBLADDER EXAM: US Abdomen Limited, Gallbladder CLINICAL HISTORY: Reason for exam: RUQ abdominal pain. TECHNIQUE: Real-time ultrasound of the right upper quadrant with image documentation. COMPARISON: No relevant prior studies available. FINDINGS: Liver: 17.9 cm length. Gallbladder: Well-distended measuring up to 9.3 cm length. Mild diffuse gallbladder wall thickening at 3.2 mm. 9 mm probable calculus in the region of the gallbladder neck versus cystic duct. Small echogenic shadowing foci in the gallbladder fundal wall suggesting adenomyomatosis. Trace pericholecystic fluid. Patient received medication prior to study and cannot assess for a Navarro's sign. Common bile duct: 4.6 mm diameter. No stones. No dilation. Pancreas: Poorly seen due to bowel gas. No hydronephrosis. IMPRESSION: Well-distended gallbladder with 9 mm calculus either in the gallbladder neck or cystic duct. Slight gallbladder wall thickening with trace pericholecystic fluid. No evidence for biliary ductal dilatation. Gallbladder fundal wall possible adenomyomatosis. Electronically signed by: Brandon Jaramillo M.D. 10/01/23 03:59 AM Hospital Course (1) Abdominal pain: Acute cholecystitis Cholelithiasis --CT ABD:No evidence for bowel obstruction or ileus. Abundant stool within the colon. Cholelithiasis. Slightly interesting gallbladder wall suggesting thickening/inflammation. No gross biliary ductal dilatation. Correlation with right upper quadrant ultrasound is recommended. Otherwise no change. --Gall Bladder USD:Well-distended gallbladder with 9 mm calculus either in the gallbladder neck or cystic duct. Slight gallbladder wall thickening with trace pericholecystic fluid. No evidence for biliary ductal dilatation. Gallbladder fundal wall possible adenomyomatosis. --S/P Laparoscopic Cholecystectomy on 10/01/[address] David Ya -- Blood cultures: No growth to date --Continue Zosyn>> no plan to continue antibiotics Received IV fluids Pain Control Appreciate surgery input Tolerates regular diet Needs follow-up with surgery on discharge Hyperlipidemia not on statin Mood disorder Continue home meds DVT Px: SCDs for now Code Status Full code Disposition Home Total Time Total Time Spent Total Time Spent (In Minutes): 55 minutes Discharge Plan Discharge Items Patient Disposition: Home - Self-Care Reason For Visit: ABD PAIN Discharge Diagnosis: Acute cholecystitis laparoscopic cholecystectomy Activity: Per Instructions section Lifting: No more than 25 pounds Bathing Comment: may shower; no soaking in tubs/pools x 2 weeks Exercise/Sports: Wait until after follow-up appointment Driving/Machine Use: no driving while taking narcotics for pain Non-emergency contact: Primary Care Provider and Surgeon Call non-emergency contact if: you have any medication questions, you have a fever, your temperature is above 101.5, your wound has increased redness, your wound has increased drainage and your wound pain has increased Follow-up/Referrals: David Ya, [Physician] - (please call to schedule follow up in clinic within 2 weeks ) Kevin Vora MD [Primary Care Provider] - Diet: Regular Addtl Attending Provider Instructions: You may remove your outer surgical dressings on 10/03/23. You will have small white bandages on underneath that are over your incisions. You may shower with these on. They will tend to fall off on their own within 7-10 days. Addtl Licensed Psychologist Provider Instructions: Follow-up with your primary care physician in 1 week Follow-up with your surgeon Dr. David Ya in 2 weeks as advised --- Your final blood cultures are pending at the time of discharge. Follow-up with your physician for results Seek immediate medical attention if your symptoms reoccur or worsen Please take all medications as instructed on discharge list below. Please call if you have any questions or problems. You can reach a [facility] hospitalist on duty at [facility] 24 hours a day by calling [phone] Pending Studies at Discharge: Yes Studies:: surgical pathology Stand-Alone Forms: My [facility], Smoking Cessation Medications and DC Order Prescriptions: New oxycodone 5 mg Tablet 5 mg PO Q8H PRN (Reason: pain) Qty: 12 0RF polyethylene glycol 3350 [Miralax] 17 gram Powder In Packet 17 g PO DAILY PRN (Reason: constipation) Qty: 10 0RF Continued risperidone 2 mg tablet 2 mg PO QAM multivitamin Tablet 1 tab PO QAM fexofenadine [Eduarda] 180 mg Tablet 180 mg PO QAM ascorbic acid (vitamin C) [Vitamin C] 500 mg Tablet 500 mg PO QAM docusate sodium [Stool Softener] 100 mg Capsule 100 mg PO QAM psyllium husk [Daily Fiber] 0.52 gram Capsule 0.52 g PO QAM trazodone 100 mg tablet 100 mg PO UD PRN (Reason: Sleep) Discharge Orders: Discharge Order (Routine); Ordered 10/02/23 Ordered By: Fabian Haq Admission Data Admit Date/Time: 10/01/23 17:04 Attending Provider: Fabian Haq Admit Provider: Braulio Mccann Primary Care Provider: Kevin Vora Other Providers: Braulio Mccann; Bernard Sosa; Martin Garber; Jay Henderson; Ehsan Blue; Ivan Kaba; Rivka Newman; David Ya; Haider Whitaker; Tom Courtney; Khang Vivas
== END 2023-10-02 15:10 | disposition home or self-care (01) ==
LOC: EDINP 23:06 → ED 23:06 → 3W 10-01 12:14 → OR 10-01 12:14